=== PATIENT | female | born 1975 | race Caucasian/White ===

== ENCOUNTER 2017-08-21 17:07 | Emergency (ER) | payer BC ==
--- NOTE | 2017-08-21 17:12 | PDOC ---
Rapid Medical Evaluation Time Seen by Provider: 08/21/17 17:08 Medical Evaluation: Allergies Allergy/AdvReac Type Severity Reaction Status Date / Time shellfish derived Allergy Severe anaphylaxis Verified 06/14/14 09:32 heparin Allergy Mild burning Verified 06/14/14 09:32 sensation to skin 08/21/17 17:09 41 year old female with history of gastric bypass, cholecystectomy, tubal ligation 17 years ago (but has 8 year old daughter) presenting with positive home test following several days of abdominal bloating/cramping. 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 Plan: -Labs including serum hcg -UA/culture -Transvaginal u/s -To Main ED for further evaluation
[2017-08-21 17:16] VITALS: BP 149/106; PULSE 86; TEMP 98.6; BMI 22.8
[2017-08-21 17:36] LABS: EOS % 0.6 % (0-4.5); HEMATOCRIT 36.3 % (32.4-45.2); HEMOGLOBIN 12.5 GM/dL (10.7-15.3); LYMPH % 45.7 % (8-40); MCH 36.5 pg (25.7-33.7); MCHC 34.6 g/dl (32.0-36.0); MEAN CELL VOLUME 105.5 fl (80-96); MONO % 9.7 % (3.8-10.2); PLATELET COUNT 149 K/MM3 (134-434); RBC 3.44 M/mm3 (3.60-5.2); RDW 17.5 % (11.6-15.6); WHITE BLOOD COUNT 3.2 K/mm3 (4.0-10.0)
--- NOTE | 2017-08-21 18:20 | PDOC ---
History of Present Illness - General Chief Complaint: ,Possible Stated Complaint: PCP SENT/EVALUATION Time Seen by Provider: 08/21/17 17:08 History Source: Patient Exam Limitations: No Limitations - History of Present Illness Initial Comments: 08/21/17 18:21 Patient came for evaluation of positive test at home. has felt bloated, and menstrual cycles have been abnormal since her surgery. Patient is a gastric bypass. 2012 with greater than 200 pound weight loss. States has had no fever, no nausea vomiting, no breast tenderness however was concerned because menses Had been especially abnormal. Timing/Duration: unsure Associated Symptoms: reports: malaise, other (abd bloating). denies: fever/ chills, headaches, loss of appetite Past History - Travel Traveled outside of the country in the last 30 days: No Close contact w/someone who was outside of country & ill: No - Past Medical History Allergies/Adverse Reactions: Allergies Allergy/AdvReac Type Severity Reaction Status Date / Time shellfish derived Allergy Severe anaphylaxis Verified 08/21/17 17:09 heparin Allergy Mild burning Verified 08/21/17 17:09 sensation to skin Home Medications: Ambulatory Orders Levothyroxine [Synthroid -] 88 mcg PO DAILY 06/14/14 COPD: No Thyroid Disease: Yes (HYPO) - Surgical History Abdominal Surgery: Yes (GASTRIC BYPASS: 01/20/2013, B/L HERNIA) - Suicide/Smoking/Psychosocial Hx Smoking History: Former smoker Have you smoked in the past 12 months: No Number of Cigarettes Smoked Daily: 0 If you are a former smoker, when did you quit?: 2013 Information on smoking cessation initiated: No Hx Alcohol Use: No Drug/Substance Use Hx: No Substance Use Type: Alcohol Review of Systems - Review of Systems Able to Perform ROS?: Yes Is the patient limited Spanish proficient: Yes Constitutional: Yes: Symptoms Reported, See HPI, Loss of Appetite, Malaise. No : Fever HEENTM: Yes: See HPI. No: Symptoms Reported Respiratory: Yes: See HPI. No: Symptoms reported, Cough ABD/GI: Yes: Symptoms Reported, See HPI, Abdominal Distended, Other (bloating ) : Yes: Symptoms Reported, See HPI, Other (lower abd cramping) All Other Systems: Reviewed and Negative *Physical Exam - Vital Signs Last Vital Signs Temp Pulse Resp BP Pulse Ox 98.6 F 86 18 149/106 100 05/02/18 17:09 08/21/17 17:09 08/21/17 17:09 08/21/17 17:09 08/21/17 17:09 - Physical Exam General Appearance: Yes: Nourished, Appropriately Dressed. No: Apparent Distress HEENT: positive: SHIVANI, Normal ENT Inspection, TMs Normal, Pharynx Normal Neck: positive: Supple. negative: Tender Respiratory/Chest: positive: Lungs Clear, Normal Breath Sounds Gastrointestinal/Abdominal: positive: Soft. negative: Tender Musculoskeletal: positive: Normal Inspection. negative: CVA Tenderness Extremity: positive: Normal Capillary Refill Integumentary: positive: Normal Color, Dry, Warm, Pale Neurologic: positive: clinical reviewer II-XII NML intact, Fully Oriented, Alert, Normal Mood/ Affect, Normal Response, Motor Strength 08/24 ED Treatment Course - LABORATORY CBC & Chemistry Diagram: 08/21/17 17:24 - ADDITIONAL ORDERS Additional order review: Laboratory Results 08/21/17 17:24 Beta HCG, Quant < 1.0 08/21/17 17:24 RBC 3.44 L MCV 105.5 H MCHC 34.6 RDW 17.5 H MPV 10.0 Neutrophils % 43.0 Lymphocytes % 45.7 H Monocytes % 9.7 Eosinophils % 0.6 Basophils % 1.0 Medical Decision Making - Medical Decision Making 08/21/17 18:24 Abdominal cramping, test negative and urinalysis negative for UTI. Patient states will follow-up with PMD as needed. *DC/Admit/Observation/Transfer Diagnosis at time of Disposition: Abdominal bloating - Discharge Dispostion Disposition: HOME Condition at time of disposition: Stable Admit: No - Referrals - Patient Instructions Printed Discharge Instructions: Intestinal Gas (Alternative Therapy) Additional Instructions: Rest, drink lots of fluids: Teas, water, soups Gudelia kemar, carbonated beverages for the bubbles May try peppermint teas Avoid heavy , spicy or fatty foods until symptoms have resolved Avoid contact with others until fevers and symptoms resolved Lots of handwashing and good hygiene Continue [id number] medications for symptomatic relief Tylenol or Motrin for fever and pain Followup with private physician in one to 2 days as needed Return to emergency department for worsened symptoms, fevers, dehydration - Post Discharge Activity
[2017-08-21 20:21] LABS: URINE APPEARANCE SLCLOUDY; URINE BILIRUBIN NEGATIVE (<2.0 mg/dL); URINE COLOR DKYELLOW; URINE GLUCOSE (UA) NEGATIVE (NEGATIVE); URINE KETONE NEGATIVE (NEGATIVE); URINE NITRITE NEGATIVE (NEGATIVE); URINE PROTEIN NEGATIVE (NEGATIVE); URINE UROBILINOGEN 4.0 E.U/dl mg/dL (0.2-1.0)
[2017-08-21 20:23] LABS: URINE LEUK ESTERASE 1+ (NEGATIVE)
[2017-08-21 20:24] LABS: EPI CELLS RARE /HPF (FEW); URINE MUCUS RARE
== END 2017-08-21 18:33 | disposition home or self-care (01) ==
LOC: JERFT 17:07
DX: R14.0 Abdominal distension (gaseous) (principal); Z98.84 Bariatric surgery status; E03.9 Hypothyroidism, unspecified; Z87.891 Personal history of nicotine dependence
CPT/HCPCS: 36415; 81003; 81015; 84702; 85025; 86850; 86900; 86901; 87086; 87186; 99281-25

== ENCOUNTER 2018-08-03 06:30 | Emergency (ER) | payer BC ==
[2018-08-03 06:46] VITALS: BP 157/98; PULSE 80; TEMP 98.1; BMI 23.6
[2018-08-03 06:56] LABS: HEMATOCRIT 31.9 % (32.4-45.2); LYMPH % 48.6 % (8-40); MCH 36.1 pg (25.7-33.7); MCHC 34.4 g/dl (32.0-36.0); MEAN PLT VOLUME 9.7 fl (7.5-11.1); MONO % 9.1 % (3.8-10.2); NEUT % 38.3 % (42.8-82.8); PLATELET COUNT 108 K/MM3 (134-434); RBC 3.04 M/mm3 (3.60-5.2); RDW 15.4 % (11.6-15.6); WHITE BLOOD COUNT 4.5 K/mm3 (4.0-10.0)
--- NOTE | 2018-08-03 07:12 | PDOC ---
History of Present Illness - General Chief Complaint: Pain, Acute Stated Complaint: ABDOMINAL PAIN Time Seen by Provider: 08/03/18 07:12 History Source: Patient Exam Limitations: No Limitations - History of Present Illness Initial Comments: 08/03/18 07:14 42 year old female with PMH hypothyroidism and PSH of gastric bypass (2012), cholecystectomy, tubal ligation presented to ED for epigastric pain since Saturday. She stated night she went to a baby shower, drank wine and ate fried chicken, then Saturday morning woke up with epigastric burning. She stated her pain is constant, with no association to food, non-radiating, no alleviating or aggravating factors. She admitted to nausea, and vomiting, but stated that she vomits 4X a week, and she has not had any increased vomiting from her baseline. She denied fever, diarrhea. She stated she feels like she may be taking too much of her thyroid medication, because she has been feeling jittery and has been losing weight recently. Allergies: Heparin, shellfish Surgical history - gastric bypass, cholecystectomy, tubal ligation Past History - Past Medical History Allergies/Adverse Reactions: Allergies Allergy/AdvReac Type Severity Reaction Status Date / Time shellfish derived Allergy Severe anaphylaxis Verified 08/03/18 06:37 heparin Allergy Mild burning Verified 08/03/18 06:37 sensation to skin Home Medications: Ambulatory Orders Levothyroxine [Synthroid -] 88 mcg PO DAILY 06/14/14 Famotidine [Pepcid] 20 mg PO BID #10 tablet 08/03/18 COPD: No Thyroid Disease: Yes (HYPO) - Surgical History Abdominal Surgery: Yes (GASTRIC BYPASS: 01/20/2013, B/L HERNIA) - Reproductive History Is Patient Now?: No Therapeutic (s) & number: No - Immunization History Immunization Up to Date: Yes - Suicide/Smoking/Psychosocial Hx Smoking History: Never smoked Have you smoked in the past 12 months: No Number of Cigarettes Smoked Daily: 0 If you are a former smoker, when did you quit?: 2013 Information on smoking cessation initiated: No Hx Alcohol Use: No Drug/Substance Use Hx: No Substance Use Type: Alcohol Review of Systems - Review of Systems Able to Perform ROS?: Yes Comments:: 08/03/18 07:41 General: admitted to weight loss. denied fever, chills, generalized weakness. HEENT: denied sore throat, rhinorrhea, ear pain. Heart: denied chest pain, palpitations, syncope, diaphoresis. Respiratory: denied shortness of breath, cough, sputum production, hemoptysis. Abdomen: admitted to abdominal pain, nausea, vomiting. denied diarrhea, constipation, blood in stool. : denied dysuria, increased urinary frequency, hematuria, urinary incontinence , flank pain. Back: denied back pain. Musculoskeletal: denied joint pain, muscle pain, joint swelling. Neurological: denied headache, dizziness, numbness, tingling, weakness. Skin: denied rash, laceration, abrasion. *Physical Exam - Vital Signs Last Vital Signs Temp Pulse Resp BP Pulse Ox 98.1 F 80 20 157/98 99 08/03/18 06:44 08/03/18 06:44 08/03/18 06:44 08/03/18 06:44 08/03/18 06:44 - Physical Exam Comments: 08/03/18 07:41 Constitutional: Well-nourished, Well-developed, appearing stated age. HEENT: head is normocephalic, atraumatic. EOMI. PERRLA. Neck: supple. Full ROM. Heart: regular rhythm. no murmurs, rubs or gallops. Lungs: clear to auscultation bilaterally. no crackles, rhonchi or wheezing. no stridor. Abdomen: soft, flat tenderness to palpation of epigastrium and LUQ. normal bowel sounds. no rebound, guarding, masses. Extremities: peripheral pulses intact. no lower extremity edema. Neurological: CN 2-12 grossly intact. moves all four extremities. Psych: awake, alert, oriented x3. follows commands. answers questions appropriately. ED Treatment Course - LABORATORY CBC & Chemistry Diagram: 08/03/18 06:41 08/03/18 06:41 - ADDITIONAL ORDERS Additional order review: 08/03/18 06:41 RBC 3.04 L MCV 105.0 H MCHC 34.4 RDW 15.4 D MPV 9.7 Neutrophils % 38.3 L Lymphocytes % 48.6 H Monocytes % 9.1 Eosinophils % 3.0 D Basophils % 1.0 Medical Decision Making - Medical Decision Making 08/03/18 07:42 42 year old female with above PMH presented to ED for epigastric burning, also complaining of weight loss/jitters. Initial Vital Signs Temp Pulse Resp BP Pulse Ox 98.1 F 80 20 157/98 99 08/03/18 06:44 08/03/18 06:44 08/03/18 06:44 08/03/18 06:44 08/03/18 06:44 Afebrile. No tachycardia. No tachypnea. Mild hypertension. No hypoxia on room air. Labs ordered: CBC, CMP, serum , TSH, Lipase Medications ordered: zofran 4 mg IV once, pepcid 20 mg IV once, maalox Imaging ordered: CT abdomen/pelvis with PO and IV contrast CBC WBC 4.5 K/mm3 (4.0-10.0) 08/03/18 06:41 RBC 3.04 M/mm3 (3.60-5.2) L 08/03/18 06:41 Hgb 11.0 GM/dL (10.7-15.3) 08/03/18 06:41 Hct 31.9 % (32.4-45.2) L 08/03/18 06:41 MCV 105.0 fl (80-96) H 08/03/18 06:41 MCH 36.1 pg (25.7-33.7) H 08/03/18 06:41 MCHC 34.4 g/dl (32.0-36.0) 08/03/18 06:41 RDW 15.4 % (11.6-15.6) D 08/03/18 06:41 Plt Count 108 K/MM3 (134-434) L D 08/03/18 06:41 MPV 9.7 fl (7.5-11.1) 08/03/18 06:41 Absolute Neuts (auto) 1.7 K/mm3 (1.5-8.0) 08/03/18 06:41 Neutrophils % 38.3 % (42.8-82.8) L 08/03/18 06:41 Lymphocytes % 48.6 % (8-40) H 08/03/18 06:41 Monocytes % 9.1 % (3.8-10.2) 08/03/18 06:41 Eosinophils % 3.0 % (0-4.5) D 08/03/18 06:41 Basophils % 1.0 % (0-2.0) 08/03/18 06:41 Nucleated RBC % 0 % (0-0) 08/03/18 06:41 No leukocytosis. Borderline macrocytic anemia. -Hx of gastric bypass surgery Thrombocytopenia. 08/03/18 08:34 CMP Sodium 137 mmol/L (136-145) 08/03/18 06:41 Potassium 3.9 mmol/L (3.5-5.1) 08/03/18 06:41 Chloride 106 mmol/L (98-107) 08/03/18 06:41 Carbon Dioxide 24 mmol/L (21-32) 08/03/18 06:41 Anion Gap 8 MMOL/L (8-16) 08/03/18 06:41 BUN 11 mg/dL (7-18) 08/03/18 06:41 Creatinine 1.0 mg/dL (0.55-1.3) 08/03/18 06:41 Creat Clearance w eGFR 60.80 (>60) 08/03/18 06:41 Random Glucose 92 mg/dL (74-106) 08/03/18 06:41 Calcium 7.4 mg/dL (8.5-10.1) L 08/03/18 06:41 Total Bilirubin 1.4 mg/dL (0.2-1) H 08/03/18 06:41 AST 189 U/L (15-37) H 08/03/18 06:41 ALT 91 U/L (13-61) H 08/03/18 06:41 Alkaline Phosphatase 176 U/L (45-117) H 08/03/18 06:41 Total Protein 6.4 g/dl (6.4-8.2) 08/03/18 06:41 Albumin 2.7 g/dl (3.4-5.0) L 08/03/18 06:41 Lipase 127 U/L (73-393) 08/03/18 06:41 TSH 1.09 uIU/ml (0.358-3.74) 08/03/18 06:41 Serum , Qual Negative 08/03/18 07:28 No electrolyte abnormalities. No ELIAS. Transaminitis. Elevated Bilirubin. Normal lipase. Normal TSH. Negative serum testing. 08/03/18 10:42 Urine Test Results Urine Color [place] 08/03/18 08:41 Urine Appearance Clear 08/03/18 08:41 Urine pH 7.0 (5.0-8.0) 08/03/18 08:41 Ur Specific [place] 1.007 (1.010-1.035) L 08/03/18 08:41 Urine Protein Negative (NEGATIVE) 08/03/18 08:41 Urine Glucose (UA) Negative (NEGATIVE) 08/03/18 08:41 Urine Ketones Negative (NEGATIVE) 08/03/18 08:41 Urine Blood Negative (NEGATIVE) 08/03/18 08:41 Urine Nitrite Negative (NEGATIVE) 08/03/18 08:41 Urine Bilirubin Negative (NEGATIVE) 08/03/18 08:41 Ur Leukocyte Esterase Negative (NEGATIVE) 08/03/18 08:41 No evidence of UTI. 08/03/18 11:22 CT abdomen/pelvis report: status post bariatric surgery. prominent diffuse fatty infiltration of the liver with associated hepatomegaly. no obvious mass lesion is seen. s/p cholecystectomy. no definite biliary tract dilation. no aortic aneurysm. appendiz not visualized, however there are no indirect CT signs of acute appendicitis. 08/03/18 11:35 Pt reassessed, standing up, walking around, appears to not be in pain any longer , reported improvement of symptoms, abdomen soft, nontender. Results explained to patient. Pt informed to follow up with PCP, given [facility] Pamphlet. Pt informed to follow up with GI, given multiple referrals. Pt requested Endocrinology referral, given multiple referrals. Discharge prescriptions: Pepcid 20 mg BID x10 pills Pt discharged. *DC/Admit/Observation/Transfer Diagnosis at time of Disposition: Epigastric burning sensation - Discharge Dispostion Condition at time of disposition: Improved Decision to Admit order: No - Prescriptions Prescriptions: Famotidine [Pepcid] 20 mg PO BID #10 tablet - Referrals - Patient Instructions Printed Discharge Instructions: DI for Gastroesophageal Reflux Disease (GERD), GERD Diet, DI for Nonalcoholic Fatty Liver Disease Additional Instructions: You were seen today for abdominal pain. Your liver enzymes were elevated and your CT showed you have a Fatty Liver. You must make changes to your diet to reverse this. Follow up the primary care doctor and one of the gastroenterologists I have provided you with referrals with within 3 days. Bring all the paperwork given to you today to your appointment, including copies of your CT report and lab work. I have sent a prescription to your pharmacy for Pepcid, take as advised on label. Return to the Emergency Department for chest pain, shortness of breath, vomiting , vomiting blood, blood in stool, fever, increasing size of abdomen or any other new, worsening or concerning symptoms. - Post Discharge Activity Forms/Work/School Notes: Back to Work
[2018-08-03] MEDS ORDERED: ONDANSETRON 4 MG/2 ML VIAL IVPUSH ONE (07:21)
[2018-08-03] MEDS ORDERED: FAMOTIDINE 20 MG/50 ML IVPB 20 MG/50 ML MG IVPB ONE ×2 (07:21→07:30)
[2018-08-03] MEDS ORDERED: MAG HYDROX/AL HYDROX/SIMETH 30 ML UNIT-DOSE CUP PO ONE (07:21)
[2018-08-03 07:22] LABS: ALBUMIN 2.7 g/dl (3.4-5.0); ALK PHOS 176 U/L (45-117); ANION GAP 8 MMOL/L (8-16); BILIRUBIN,TOTAL 1.4 mg/dL (0.2-1); BLOOD UREA NITROGEN 11 mg/dL (7-18); CALCIUM 7.4 mg/dL (8.5-10.1); CHLORIDE 106 mmol/L (98-107); CO2 24 mmol/L (21-32); GLUCOSE,RANDOM 92 mg/dL (74-106); LIPASE 127 U/L (73-393); POTASSIUM 3.9 mmol/L (3.5-5.1); SGOT/AST 189 U/L (15-37); SGPT/ALT 91 U/L (13-61); SODIUM 137 mmol/L (136-145); TOT PROT 6.4 g/dl (6.4-8.2)
--- NOTE | 2018-08-03 07:23 | PDOC ---
Attending Attestation - Resident Resident Name: Anita Javier - ED Attending Attestation I have performed the following: I have examined & evaluated the patient, The case was reviewed & discussed with the resident, I agree w/resident's findings & plan, Exceptions are as noted - HPI HPI: 08/03/18 07:21 42yo F hx hypothyroidism, gastric bypass, cholecystectomy, hiatal hernia repair all in 2012 presents to ED with burning epigastric pain for 2 days a/w NBNB emesis Pt reports 2 episodes of vomiting, but states this vomiting is not abnormal for her since her surgeries Reports sxs began after eating chicken and drinking wine at a baby shower. Has not tried any treatments Reports sxs are similar to gastric reflux she had prior to hiatal hernia repair but worse Last BM 2 days ago was normal, non bloody. Pt reports she is often constipated which resolves with prune juice Passed flatus here in the ED Denies fevers, chills, cp, sob, headache, focal weakness/numbness, urinary sxs. - Physicial Exam PE: 08/03/18 08:08 GENERAL: Awake, alert, and fully oriented, in no acute distress EYES: PERRLA, EOMI, sclera anicteric, conjunctiva clear ENT:Oropharynx clear without exudates. Moist mucosa LUNGS: Breath sounds equal, clear to auscultation bilaterally. No wheezes, and no crackles HEART: Regular rate and rhythm, normal S1 and S2, no murmurs, rubs or gallops ABDOMEN: Soft,+epigastric abd ttp, no distention, normoactive bowel sounds. No guarding, no rebound. No masses EXTREMITIES: Normal range of motion, no edema. No cords, erythema, or tenderness NEUROLOGICAL: Normal speech, cranial nerves intact, equal strength and sensation b/l SKIN: Warm, Dry, normal turgor, no rashes or lesions noted. - Medical Decision Making 08/03/18 08:10 42yo F hx gastric bypass, hiatal hernia, cholecystectomy presents to the ED with epigastric abdominal pain. Vitals unremarkable Exam with epigastric ttp Labs thus far with mildly elevated AST/ALT, alk phos, bili UPT/UA pending DDx includes pancreatitis vs gastritis vs GERD vs gastroenteritis vs retained stone In light of reported bowel altering surgery (pt states part of her intestine was removed), will obtain CTAP with PO/IV contrast Plan also for symptomatic control, reassess 08/03/18 11:33 CTAP with no acute pathology Pt feeling much better at this time, ambulating in ED, tolerating PO Requests DC home Likely gastritis vs GERD Pt to f/u with PMD this wk, return precautions given I discussed the physical exam findings, ancillary test results and final diagnoses with the patient. I answered all of the patient's questions. The patient was satisfied with the care received and felt comfortable with the discharge plan and treatment plan. The patient will call their primary care physician within 24 hours to arrange follow-up and will return to the Emergency Department with any new, persistent or worsening symptoms.
[2018-08-03] MEDS ORDERED: MAG HYDROX/AL HYDROX/SIMETH 30 ML UNIT-DOSE CUP ONE (07:28)
[2018-08-03] MEDS ORDERED: ONDANSETRON 4 MG/2 ML VIAL ONE (07:28)
[2018-08-03] MEDS ORDERED: SODIUM CHLORIDE 1,000 ML IV STA (07:46)
[2018-08-03 10:12] LABS: ANISOCYTOSIS 1+; PLATELET ESTIMATE DECREASED
[2018-08-03 10:17] LABS: URINE APPEARANCE CLEAR; URINE BILIRUBIN NEGATIVE (NEGATIVE); URINE COLOR ORANGE; URINE GLUCOSE (UA) NEGATIVE (NEGATIVE); URINE KETONE NEGATIVE (NEGATIVE); URINE LEUK ESTERASE NEGATIVE (NEGATIVE); URINE NITRITE NEGATIVE (NEGATIVE); URINE PROTEIN NEGATIVE (NEGATIVE); URINE UROBILINOGEN 0.2 mg/dL (0.2-1.0)
== END 2018-08-03 11:55 | disposition home or self-care (01) ==
LOC: JER 06:30
PROC: 3E0337Z Introduction of Electrolytic and Water Balance Substance into Peripheral Vein, Percutaneous Approach (ICD-10-PCS; principal; 2018-08-03)
PROC: 3E033GC Introduction of Other Therapeutic Substance into Peripheral Vein, Percutaneous Approach (ICD-10-PCS; 2018-08-03)
PROC: 3E033GC Introduction of Other Therapeutic Substance into Peripheral Vein, Percutaneous Approach (ICD-10-PCS; 2018-08-03)
DX: R10.13 Epigastric pain (principal); K76.0 Fatty (change of) liver, not elsewhere classified; E03.9 Hypothyroidism, unspecified; Z98.84 Bariatric surgery status
CPT/HCPCS: 36415; 74177-TC; 80053; 81003; 83690; 84443; 84703; 85025; 87086; 99283-25; J7030; Q9967

== ENCOUNTER 2018-09-30 16:13 | Emergency (ER) | payer BC | END 2018-09-30 18:30 | disposition home or self-care (01) | LOC: JER 16:13 ==

== ENCOUNTER 2019-06-14 04:44 | Inpatient (IN) | payer BC ==
--- NOTE | 2019-06-14 05:04 | PDOC ---
History of Present Illness - General Chief Complaint: Pain, Acute Stated Complaint: UPPER ABDOMINAL PAIN - History of Present Illness Initial Comments: The pt is a 43F w/ a history of hypothyroidism, eczema, s/p RYGB and internal hernia repair, s/p ramon, s/p BTL who presents for evaluation of 3 days of abdominal pain. The began as suprapubic pain but is now epigastric/RUQ. It is achy/bloating, intermittent, non-radiating, and not exacerbated or alleviated by anything she can identify. She endorses dysuria. She denies fevers/chills, nausea/vomiting, diarrhea, blood in her urine or stool , rash. She has not tried taking anything for her symptoms. Pt reports seeing her bariatric surgeon last year at [facility], had an EGD and colonoscopy which were reportedly normal. She reports being told that her liver enzymes were elevated and she needed to f/ u with GI/hepatology but has yet to do so. Pt reports being compliant with her probiotics, vitamins, and synthroid Pt states she quit drinking EtOH 1 month ago. Prior to that she reports daily EtOH use for approximately 3 years. States she would drink 1/2 bottle of wine, cockails, and several shots daily. Denies history of withdrawal symptoms or seizures PFH: Cousin and Uncle w/ non-alcoholic liver disease PMD: N/A Bariatric Surgeon: Dr. Mayers ([facility]) 06/14/19 05:32 Past History - Past Medical History Allergies/Adverse Reactions: Allergies Allergy/AdvReac Type Severity Reaction Status Date / Time shellfish derived Allergy Severe anaphylaxis Verified 06/14/19 05:01 heparin Allergy Mild burning Verified 06/14/19 05:01 sensation to skin Home Medications: Ambulatory Orders Levothyroxine [Synthroid -] 88 mcg PO DAILY #30 tablet 09/30/18 COPD: No Thyroid Disease: Yes (HYPO) - Surgical History Abdominal Surgery: Yes (GASTRIC BYPASS: 01/20/2013, B/L HERNIA) - Reproductive History Therapeutic (s) & number: No - Immunization History Immunization Up to Date: Yes - Psycho Social/Smoking Cessation Hx Smoking History: Never smoked Have you smoked in the past 12 months: No Number of Cigarettes Smoked Daily: 0 If you are a former smoker, when did you quit?: 2013 Information on smoking cessation initiated: No Hx Alcohol Use: No Drug/Substance Use Hx: No Substance Use Type: Alcohol Review of Systems - Review of Systems Able to Perform ROS?: Yes Comments:: GENERAL/CONSTITUTIONAL: No fever or chills. No weakness HEAD, EYES, EARS, NOSE AND THROAT: No change in vision. No change in hearing. No sore throat CARDIOVASCULAR: No chest pain or shortness of breath RESPIRATORY: Denies cough, hemoptysis GASTROINTESTINAL: No nausea, vomiting, diarrhea or constipation GENITOURINARY: +dysuria; denies hematuria MUSCULOSKELETAL: No joint or muscle swelling or pain. No neck or back pain SKIN: No rash NEUROLOGIC: No headache, vertigo, loss of consciousness, or change in strength/ sensation ENDOCRINE: No increased thirst. No abnormal weight change HEMATOLOGIC/LYMPHATIC: No anemia, easy bleeding, or history of blood clots ALLERGIC/IMMUNOLOGIC: No hives or skin allergy 06/14/19 05:04 Is the patient limited Ukrainian proficient: No *Physical Exam - Vital Signs Last Vital Signs Temp Pulse Resp BP Pulse Ox 97.8 F 93 H 20 118/73 100 06/14/19 05:01 06/14/19 05:01 06/14/19 05:01 06/14/19 05:01 06/14/19 05:01 - Physical Exam GENERAL: Awake, alert, and oriented to person/place/time, in no acute distress HEAD: No signs of trauma, normocephalic, atraumatic EYES: PERRLA, EOMI, scleral icterus ENT: Hearing grossly normal, nares patent, oropharynx clear without exudates. No uvular deviation. Moist mucosa LUNGS: No distress, speaks in full sentences, clear to auscultation bilaterally HEART: Regular rate and rhythm, normal S1 and S2, no murmurs appreciated, peripheral pulses normal and equal bilaterally ABDOMEN: Soft, RUQ TTP w/o rebound or guarding, hepatomegaly, normoactive bowel sounds EXTREMITIES: Normal inspection, Normal range of motion, no edema. No clubbing or cyanosis NEUROLOGICAL: Cranial nerves II through XII grossly intact. Normal speech, normal gait, no focal sensorimotor deficits SKIN: Jaundice, otherwise warm/dry 06/14/19 05:04 ED Treatment Course - LABORATORY CBC & Chemistry Diagram: 06/14/19 05:23 06/14/19 05:23 Medical Decision Making - Medical Decision Making The pt is a 43F w/ a history of hypothyroidism, eczema, s/p RYGB and internal hernia repair, s/p ramon, s/p BTL, history of EtOH abuse who presents for evaluation of 3 days of RUQ abdominal pain and jaundice. Pt also reports dysuria. Consider liver disease/failure, cirrhosis, hepatitis, retained biliary stone, pancreatitis, less likely gastritis; also UTI/pyelo given urinary symptoms ED Course CMP, CBC, Trop I, hepatitis panel, Dbili, UA, UCx ECG CT A&P w/ PO and IV contrast -Began drinking contrast at 0540 Morphine 4mg IV once for pain -Zofran 4mg IV once for subsequent nausea 06/14/19 05:44 No leukocytosis Anemia noted, pt non-tachycardic or hypotensive Thrombocytopenia noted Coags and T/S obtained and sent 06/14/19 06:04 Increasing transaminitis noted Pending CT A&P Pt signed out to Dr. Javier Discharge - Discharge Information Problems reviewed: Yes Clinical Impression/Diagnosis: Transaminitis, Hypokalemia, RUQ pain, Thrombocytopenia, Elevated bilirubin - Follow up/Referral - Patient Discharge Instructions - Post Discharge Activity
--- NOTE | 2019-06-14 05:05 | PDOC ---
Attending Attestation - Resident Resident Name: Zak Lozano - ED Attending Attestation I have performed the following: I have examined & evaluated the patient, The case was reviewed & discussed with the resident, I agree w/resident's findings & plan - HPI HPI: 06/14/19 06:36 The pt is a 43F w/ a history of hypothyroidism, eczema, s/p RYGB and internal hernia repair, s/p ramon, s/p BTL who presents for evaluation of 3 days of abdominal pain. The began as suprapubic pain but is now epigastric/RUQ. It is achy/bloating, intermittent, non-radiating, and not exacerbated or alleviated by anything she can identify. She endorses dysuria. - Physicial Exam PE: 06/14/19 06:36 Agree with resident exam - Medical Decision Making 06/14/19 06:36 Pt is drinking contrast. She will have CT scan in the AM Pt signned out to the day team Heart Score/ECG Review - ECG Intrepretation Rhythm: Regular Rhythm - [place]: Normal - P and FL Prominent R with upright T in V1 (true posterior OK): No Delta Wave(s) Present: No WPW: No - QRS Poor R Wave Progression: No Q Wave Present: No - ST and T Flattened T Waves: No Prolonged Q-T Interval: No - ECG Impressions Normal ECG: Yes Non-specific ST Elevation: No Ischemic Changes: No Bradycardia: No Torsades yolanda Pointes: No
[2019-06-14 05:08] VITALS: BMI 24.1
[2019-06-14] MEDS ORDERED: morphine CARPU-JECT 4 MG/1 ML DISP.SYRIN IVPUSH ONE (05:32)
[2019-06-14 05:37] LABS: BASO % 0.5 % (0-2.0); EOS % 3.2 % (0-4.5); HEMATOCRIT 27.9 % (32.4-45.2); HEMOGLOBIN 9.2 GM/dL (10.7-15.3); LYMPH % 35.1 % (8-40); MCH 30.4 pg (25.7-33.7); MEAN CELL VOLUME 92.1 fl (80-96); MEAN PLT VOLUME 9.8 fl (7.5-11.1); MONO % 7.4 % (3.8-10.2); NEUT % 53.8 % (42.8-82.8); PLATELET COUNT 77 K/MM3 (134-434); RBC 3.03 M/mm3 (3.60-5.2); RDW 20.2 % (11.6-15.6); WHITE BLOOD COUNT 4.3 K/mm3 (4.0-10.0)
[2019-06-14] MEDS ORDERED: morphine SULFATE 4 MG/ML VIAL ONE (05:37)
[2019-06-14] MEDS ORDERED: ONDANSETRON 4 MG/2 ML VIAL IVPUSH ONE (05:43)
[2019-06-14] MEDS ORDERED: ONDANSETRON 4 MG/2 ML VIAL ONE ×2 (05:45→07:40)
[2019-06-14 05:59] LABS: MAGNESIUM 2.1 mg/dL (1.8-2.4)
[2019-06-14] MEDS ORDERED: LACTATED RINGERS SOLUTION 1000 ML INFUS.BAG IV ONE (06:05)
[2019-06-14 06:08] LABS: ALBUMIN 3.1 g/dl (3.4-5.0); BILIRUBIN,DIRECT 1.5 mg/dL (0.0-0.2); BILIRUBIN,TOTAL 2.8 mg/dL (0.2-1); CALCIUM 8.3 mg/dL (8.5-10.1); CREATININE 0.7 mg/dL (0.55-1.3); POTASSIUM 3.3 mmol/L (3.5-5.1); TOT PROT 7.7 g/dl (6.4-8.2)
[2019-06-14 06:10] LABS: BLOOD UREA NITROGEN 2.9 mg/dL (7-18)
[2019-06-14] MEDS ORDERED: POTASSIUM CHLORIDE ORAL LIQUID 20 MEQ/15 ML PO ONE (06:41)
[2019-06-14 06:43] LABS: INR 1.29 (0.83-1.09); PROTHROMBIN TIME (PATIENT) 15.3 SEC (9.7-13.0)
[2019-06-14 06:46] LABS: ACTIVATED PTT 39.6 SECONDS (25.2-36.5)
[2019-06-14] MEDS ORDERED: POTASSIUM CHLORIDE ORAL LIQUID 20 MEQ/15 ML ONE (06:58)
--- NOTE | 2019-06-14 08:11 | PDOC ---
ED Treatment Course - LABORATORY CBC & Chemistry Diagram: 06/14/19 05:23 06/14/19 05:23 - Medications Given in the ED: ED Medications Discontinued Medications Generic Name Dose Route Start Last Admin Trade Name Giuliano PRN Reason Stop Dose Admin Lactated Ringer's 1,000 ml 06/14/19 06:05 06/14/19 06:48 Lactated Ringers Solution IV 06/14/19 06:06 1,000 ml ONCE ONE Administration Morphine Sulfate 4 mg 06/14/19 05:32 06/14/19 05:43 Morphine Injection - IVPUSH 06/14/19 05:33 4 mg ONCE ONE Administration Ondansetron HCl 4 mg 06/14/19 05:43 06/14/19 06:47 Zofran Injection IVPUSH 06/14/19 05:44 Not Given ONCE ONE Potassium Chloride 40 meq 06/14/19 06:41 06/14/19 07:03 Potassium Chloride Oral Liquid PO 06/14/19 06:42 40 meq ONCE ONE Administration Medical Decision Making - Medical Decision Making 43 year old male with PMH ETOH abuse (last drank x1 month ago after daily use for 3 years; 1/2 bottle of wine + shots a day), hypothryoidism, eczema, RYGB and internal internal hernia repair, cholecystectomy, elevated liver enzymes, bilateral tubal ligation presented to ED for RUQ pain x3 days associated with dysuria. PMD: N/A Bariatric Surgeon: Dr. Mayers ([facility]) Initial Vital Signs Temp Pulse Resp BP Pulse Ox 97.8 F 93 H 20 118/73 100 06/14/19 05:01 06/14/19 05:01 06/14/19 05:01 06/14/19 05:01 06/14/19 05:01 Laboratory Last Values WBC 4.3 K/mm3 (4.0-10.0) 06/14/19 05:23 RBC 3.03 M/mm3 (3.60-5.2) L 06/14/19 05:23 Hgb 9.2 GM/dL (10.7-15.3) L 06/14/19 05:23 Hct 27.9 % (32.4-45.2) L 06/14/19 05:23 MCV 92.1 fl (80-96) 06/14/19 05:23 MCH 30.4 pg (25.7-33.7) D 06/14/19 05:23 MCHC 33.0 g/dl (32.0-36.0) 06/14/19 05:23 RDW 20.2 % (11.6-15.6) H 06/14/19 05:23 Plt Count 77 K/MM3 (134-434) L D 06/14/19 05:23 MPV 9.8 fl (7.5-11.1) D 06/14/19 05:23 Absolute Neuts (auto) 2.3 K/mm3 (1.5-8.0) 06/14/19 05:23 Neutrophils % 53.8 % (42.8-82.8) D 06/14/19 05:23 Lymphocytes % 35.1 % (8-40) D 06/14/19 05:23 Monocytes % 7.4 % (3.8-10.2) 06/14/19 05:23 Eosinophils % 3.2 % (0-4.5) D 06/14/19 05:23 Basophils % 0.5 % (0-2.0) 06/14/19 05:23 Nucleated RBC % 0 % (0-0) 06/14/19 05:23 PT with INR 15.30 SEC (9.7-13.0) H 06/14/19 06:10 INR 1.29 (0.83-1.09) H 06/14/19 06:10 PTT (Actin FS) 39.6 SECONDS (25.2-36.5) H 06/14/19 06:10 Sodium 138 mmol/L (136-145) 06/14/19 05:23 Potassium 3.3 mmol/L (3.5-5.1) L 06/14/19 05:23 Chloride 106 mmol/L (98-107) 06/14/19 05:23 Carbon Dioxide 26 mmol/L (21-32) 06/14/19 05:23 Anion Gap 6 MMOL/L (8-16) L 06/14/19 05:23 BUN 2.9 mg/dL (7-18) L* 06/14/19 05:23 Creatinine 0.7 mg/dL (0.55-1.3) 06/14/19 05:23 Est GFR (CKD-EPI)AfAm 122.99 06/14/19 05:23 Est GFR (CKD-EPI)NonAf 106.12 06/14/19 05:23 Random Glucose 100 mg/dL (74-106) 06/14/19 05:23 Calcium 8.3 mg/dL (8.5-10.1) L 06/14/19 05:23 Magnesium 2.1 mg/dL (1.8-2.4) 06/14/19 05:23 Total Bilirubin 2.8 mg/dL (0.2-1) H 06/14/19 05:23 Direct Bilirubin 1.5 mg/dL (0.0-0.2) H 06/14/19 05:23 AST 289 U/L (15-37) H 06/14/19 05:23 ALT 138 U/L (13-61) H 06/14/19 05:23 Alkaline Phosphatase 183 U/L (45-117) H 06/14/19 05:23 Total Protein 7.7 g/dl (6.4-8.2) 06/14/19 05:23 Albumin 3.1 g/dl (3.4-5.0) L 06/14/19 05:23 Lipase 194 U/L (73-393) 06/14/19 05:23 Serum , Qual Negative 06/14/19 05:23 No leukocytosis. Thrombocytopenia. Hypokalemia. -Repleted by prior provider with KCL 40 mEq PO once Transaminitis Lipase wnl No supratherapeutic INR Elevated direct and total bilirubin Morphine given for pain, made patient nauseous and zofran was ordered. Pepcid ordered. ED Medications Discontinued Medications Generic Name Dose Route Start Last Admin Trade Name Freq PRN Reason Stop Dose Admin Lactated Ringer's 1,000 ml 06/14/19 06:05 06/14/19 06:48 Lactated Ringers Solution IV 06/14/19 06:06 1,000 ml ONCE ONE Administration Morphine Sulfate 4 mg 06/14/19 05:32 06/14/19 05:43 Morphine Injection - IVPUSH 06/14/19 05:33 4 mg ONCE ONE Administration Ondansetron HCl 4 mg 06/14/19 05:43 06/14/19 06:47 Zofran Injection IVPUSH 06/14/19 05:44 Not Given ONCE ONE Potassium Chloride 40 meq 06/14/19 06:41 06/14/19 07:03 Potassium Chloride Oral Liquid PO 06/14/19 06:42 40 meq ONCE ONE Administration 06/14/19 09:03 Urine Test Results Urine Color Yellow 06/14/19 05:38 Urine Appearance Clear 06/14/19 05:38 Urine pH 6.5 (5.0-8.0) 06/14/19 05:38 Ur Specific [place] 1.008 (1.010-1.035) L 06/14/19 05:38 Urine Protein Negative (NEGATIVE) 06/14/19 05:38 Urine Glucose (UA) Negative (NEGATIVE) 06/14/19 05:38 Urine Ketones Negative (NEGATIVE) 06/14/19 05:38 Urine Blood Negative (NEGATIVE) 06/14/19 05:38 Urine Nitrite Negative (NEGATIVE) 06/14/19 05:38 Urine Bilirubin Negative (NEGATIVE) 06/14/19 05:38 Ur Leukocyte Esterase 2+ (NEGATIVE) H 06/14/19 05:38 WBC 4 06/14/19 09:28 CT report: Name: [facility] DEPARTMENT OF RADIOLOGY Phys: Zak Lozano RESIDENT : 1975 Age: 43 Sex: F [facility] Acct: [id number] Loc: [address] Exam Date: 06/14/19 Status: [place] [address] Unit Number: [id number] EXAM#: TYPE/EXAM: RESULT: [id number] CT/ABDOMEN PELVIS CT WITH CONTR HISTORY PROVIDED: Right upper quadrant pain. Sequential axial images were obtained from the domes of the diaphragms through the symphysis pubis following the administration of both oral and intravenous contrast material. The lung bases are clear. The liver is enlarged measuring 20 cm in craniocaudad dimension. It is hypodense in texture consistent with diffuse fatty infiltration. No mass lesions are identified within the liver. The spleen, pancreas, adrenal glands and kidneys demonstrate no significant abnormalities. The gallbladder has been removed. There is no evidence of intra-abdominal or retroperitoneal lymphadenopathy or fluid collections. There is no evidence of pneumoperitoneum, bowel obstruction or intra-abdominal abscess. There is no CT evidence of acute appendicitis or diverticulitis. Examination of the pelvis demonstrates no evidence of pelvic masses, fluid collections or lymphadenopathy. There is a 2 cm involuting cyst of the left ovary with a trace amount of free fluid in the left adnexal region. There is no evidence of acute bony pathology. IMPRESSION: 1. Hepatomegaly with diffuse fatty infiltration of the liver. 2. S/P cholecystectomy with no evidence of acute pathology within the abdomen or pelvis. Please see above discussion. Reported By: Jeanmarie David MD 06/14/19 [id number] Pt reported improvement of symptoms. Pt advised to F/U with PCP, GI. Medications ordered: Keflex 500 mg PO once GI, Dr. Saunders, paged for recs. 06/14/19 10:21 Dr. Saunders advised admission for acute liver failure likely secondary to ETOH. He requested ETOH and ethyl glucuronide lab work. Pt has no PCP. Discharge - Discharge Information Problems reviewed: Yes Clinical Impression/Diagnosis: Transaminitis, Hypokalemia, RUQ pain, Thrombocytopenia, Elevated bilirubin, UTI (urinary tract infection), Liver failure Condition: Guarded - Admission Yes - Follow up/Referral - Patient Discharge Instructions Patient Printed Discharge Instructions: DI for Urinary Tract Infection (UTI) - Post Discharge Activity
[2019-06-14 09:01] LABS: EPI CELLS 0.8 /HPF (0-5/HPF); HYALINE CASTS 1 /lpf (0-8); PH,URINE 6.5 (5.0-8.0); URINE APPEARANCE CLEAR; URINE BACTERIA 6.2 /hpf (NEGATIVE); URINE BILIRUBIN NEGATIVE (NEGATIVE); URINE COLOR YELLOW; URINE GLUCOSE (UA) NEGATIVE (NEGATIVE); URINE KETONE NEGATIVE (NEGATIVE); URINE LEUK ESTERASE 2+ (NEGATIVE); URINE NITRITE NEGATIVE (NEGATIVE); URINE PROTEIN NEGATIVE (NEGATIVE); URINE RBC 3 /hpf (0-4); URINE WBC 4 /hpf (0-5)
[2019-06-14] MEDS ORDERED: FAMOTIDINE 20 MG/50 ML IVPB 20 MG/50 ML MG IVPB ONE ×4 (09:26→22:57)
[2019-06-14] MEDS ORDERED: CEPHALEXIN MONOHYDRATE 500 MG CAPSULE (UD) PO ONE (09:48)
[2019-06-14] MEDS ORDERED: CEPHALEXIN MONOHYDRATE 500 MG CAPSULE (UD) ONE (10:08)
[2019-06-14] MEDS ORDERED: FOLIC ACID INJECTION - 1 MG, THIAMINE HCL 100 MG, MULTIVIT INJECTION ADULT 10 ML in SOD... IVPB ONE (10:10)
[2019-06-14] MEDS: LACTATED RINGERS SOLUTION 1,000 ML IV SCH (11:12)
--- NOTE | 2019-06-14 11:26 | HP ---
CHIEF COMPLAINT: abdominal pain PCP: denies HISTORY OF PRESENT ILLNESS: This is a 43 y/o F with a strong ETOH abuse hx, aure en Y gastric bypass surgery, chronic liver failure, who p/w 01/29 sharp midepigastric pain since . Denies any association with foods, although improved with pepcid in ED. Pt states she has no fevers, chills, bowel/bladder complaints, cp, sob, nausea, vomiting. Pt last drink of alcohol was saturday (1-2 beers), but last month she stopped excessively drinking. Previously drinking 6 christi cocktails X 3 yrs every day. She states she goes to [facility] every day 4-6 PM for those 3 yrs. She has a fam hx of liver cirrhosis in her paternal uncle. Pt had prior egd and colonscopy prior to gastric aure and Y found to be normal. Pt denies any recent NSAIDs use or any signs of hematochexia, melena. She lives in [place] with her 10 y/o daughter who has psychiatric issues per the patient. ER course was notable for: (1) CT abd pelvis- hepatomegaly w/ diffuse fatty infiltration of liver, s/p cholecystectomy without evidence of acute pathology. (2) UA- 2+ leuk est (3)US abd- diffuse hepatic steatosis Recent Travel: denies PAST MEDICAL HISTORY: hypothyroidism PAST SURGICAL HISTORY: tubal ligation(1999), hernia operations @5y/o, cholecystectomy (2018), aure en y Social History: Smoking: quit saturday, denies MJA Alcohol:as above Drugs: denies Allergies shellfish derived Allergy (Severe, Verified 06/14/19 05:01) anaphylaxis heparin Allergy (Mild, Verified 06/14/19 05:01) burning sensation to skin HOME MEDICATIONS: Home Medications Medication Instructions Recorded Levothyroxine [Synthroid -] 88 mcg PO DAILY #30 tablet 09/30/18 REVIEW OF SYSTEMS Negative except above PHYSICAL EXAMINATION Vital Signs - 24 hr 06/14/19 05:01 Temperature 97.8 F Pulse Rate 93 H Respiratory 20 Rate Blood Pressure 118/73 O2 Sat by Pulse 100 Oximetry (%) GENERAL: Awake, alert, and fully oriented, in no acute distress. ENT- Tongue yellowing LUNGS: Breath sounds equal, clear to auscultation bilaterally. No wheezes, and no crackles. No accessory muscle use. HEART: Regular rate and rhythm, normal S1 and S2 without murmur, rub or gallop. ABDOMEN: Soft, tenderness to palpation, not distended, hyperactive bowel sounds noted hepatomegaly. LOWER EXTREMITIES: 2+ pulses, warm, well-perfused. No calf tenderness. No peripheral edema. NEUROLOGICAL: Cranial nerves II-XII intact. Normal speech. Normal gait. Laboratory Results - last 24 hr 06/14/19 06/14/19 06/14/19 05:23 05:23 05:23 WBC 4.3 RBC 3.03 L Hgb 9.2 L Hct 27.9 L MCV 92.1 MCH 30.4 D MCHC 33.0 RDW 20.2 H Plt Count 77 L D MPV 9.8 D Absolute Neuts (auto) 2.3 Neutrophils % 53.8 D Lymphocytes % 35.1 D Monocytes % 7.4 Eosinophils % 3.2 D Basophils % 0.5 Nucleated RBC % 0 PT with INR INR PTT (Actin FS) Sodium 138 Potassium 3.3 L Chloride 106 Carbon Dioxide 26 Anion Gap 6 L BUN 2.9 L* Creatinine 0.7 Est GFR (CKD-EPI)AfAm 122.99 Est GFR (CKD-EPI)NonAf 106.12 Random Glucose 100 Calcium 8.3 L Magnesium 2.1 Total Bilirubin 2.8 H Direct Bilirubin 1.5 H AST 289 H ALT 138 H Alkaline Phosphatase 183 H Total Protein 7.7 Albumin 3.1 L Lipase 194 Serum , Qual Urine Color Urine Appearance Urine pH Ur Specific [place] Urine Protein Urine Glucose (UA) Urine Ketones Urine Blood Urine Nitrite Urine Bilirubin Urine Urobilinogen Ur Leukocyte Esterase Urine WBC (Auto) Urine RBC (Auto) Urine Casts (Auto) U Epithel Cells (Auto) Urine Bacteria (Auto) Alcohol, Quantitative Blood Type Antibody Screen 06/14/19 06/14/19 06/14/19 05:23 05:38 06:10 WBC RBC Hgb Hct MCV MCH MCHC RDW Plt Count MPV Absolute Neuts (auto) Neutrophils % Lymphocytes % Monocytes % Eosinophils % Basophils % Nucleated RBC % PT with INR 15.30 H INR 1.29 H PTT (Actin FS) 39.6 H Sodium Potassium Chloride Carbon Dioxide Anion Gap BUN Creatinine Est GFR (CKD-EPI)AfAm Est GFR (CKD-EPI)NonAf Random Glucose Calcium Magnesium Total Bilirubin Direct Bilirubin AST ALT Alkaline Phosphatase Total Protein Albumin Lipase Serum , Qual Negative Urine Color Yellow Urine Appearance Clear Urine pH 6.5 Ur Specific [place] 1.008 L Urine Protein Negative Urine Glucose (UA) Negative Urine Ketones Negative Urine Blood Negative Urine Nitrite Negative Urine Bilirubin Negative Urine Urobilinogen 1.0 Ur Leukocyte Esterase 2+ H Urine WBC (Auto) 4 Urine RBC (Auto) 3 Urine Casts (Auto) 1 U Epithel Cells (Auto) 0.8 Urine Bacteria (Auto) 6.2 Alcohol, Quantitative Blood Type Antibody Screen 06/14/19 06/14/19 06:10 10:07 WBC RBC Hgb Hct MCV MCH MCHC RDW Plt Count MPV Absolute Neuts (auto) Neutrophils % Lymphocytes % Monocytes % Eosinophils % Basophils % Nucleated RBC % PT with INR INR PTT (Actin FS) Sodium Potassium Chloride Carbon Dioxide Anion Gap BUN Creatinine Est GFR (CKD-EPI)AfAm Est GFR (CKD-EPI)NonAf Random Glucose Calcium Magnesium Total Bilirubin Direct Bilirubin AST ALT Alkaline Phosphatase Total Protein Albumin Lipase Serum , Qual Urine Color Urine Appearance Urine pH Ur Specific [place] Urine Protein Urine Glucose (UA) Urine Ketones Urine Blood Urine Nitrite Urine Bilirubin Urine Urobilinogen Ur Leukocyte Esterase Urine WBC (Auto) Urine RBC (Auto) Urine Casts (Auto) U Epithel Cells (Auto) Urine Bacteria (Auto) Alcohol, Quantitative < 3 Blood Type O POSITIVE Antibody Screen Negative ASSESSMENT/PLAN: This is a 43 y/o F with a strong ETOH abuse hx, aure en Y gastric bypass surgery , chronic liver failure, who p/w 01/29 sharp midepigastric pain since . Denies any association with foods, although improved with pepcid in ED. Pt states she has no fevers, chills, bowel/bladder complaints, cp, sob, nausea, vomiting. #Hepatic Steatosis - 2/2 ETOH abuse - liver cirrhosis per US results - thrombocytopenia due to Liver failure likely due to splenic congestion/portal HTN - would need to assess for varices with EGD at some point to assess need for carvedilol/propanol futility in this pt. - INR not supratherapeutic yet which is a good sign - Hepatitis panel sent - Direct bili elevated indicating jaundice - no cbd dilation - AST/ALT- 289/138 - Maddreys score- 21 points (good prognosis) - Child Wagn class B- indication for transplant eval (30% periop mortality) #Anemia - iron studies ordered, Hgb 9.2 - no signs of overt bleeding - ferritin ordered - likely in setting of liver issues0 #Hypokalemia - repleted likely 2/2 poor PO intake. - rpt BMP for later No DVT ppx at this time given thrombocytopenia. Visit type - Emergency Visit Emergency Visit: Yes ED Registration Date: 06/14/19 Care time: The patient presented to the Emergency Department on the above date and was hospitalized for further evaluation of their emergent condition. - New Patient This patient is new to me today: Yes Date on this admission: 06/15/19 - Critical Care Critical Care patient: No ATTENDING PHYSICIAN STATEMENT I saw and evaluated the patient. I reviewed the resident's note and discussed the case with the resident. I agree with the resident's findings and plan as documented. SUBJECTIVE: OBJECTIVE: ASSESSMENT AND PLAN:
[2019-06-14] MEDS ORDERED: FOLIC ACID 1 MG TABLET (FP) PO ONE (11:27)
[2019-06-14] MEDS ORDERED: ONDANSETRON 4 MG TABLET PO PRN (11:36)
[2019-06-14] MEDS ORDERED: ONDANSETRON 4 MG TABLET PO SCH (11:45)
[2019-06-14] MEDS ORDERED: PANTOPRAZOLE 40 MG TABLET ONE (14:13)
[2019-06-14] MEDS: PANTOPRAZOLE 40 MG TABLET PO SCH (14:17)
--- NOTE | 2019-06-14 15:38 | CON.GI ---
Consult Consult Specialty:: GI Referred by:: Satish Ward Jr, MD Reason for Consultation:: Alcoholic hepatitis - History of Present Illness Chief Complaint: 43 y.o. woman with long history alcohol abuse, came to ER with RUQ pain x 3 days. Labs show elevated AST>ALT, bili 2.8, PT 15.3 sec. Pt has no prior history of alcoholic hepatitis. Last drink was 2 days ago. History of Present Illness: CBC,CMP WBC 4.3 K/mm3 (4.0-10.0) 06/14/19 05:23 RBC 3.03 M/mm3 (3.60-5.2) L 06/14/19 05:23 Hgb 9.2 GM/dL (10.7-15.3) L 06/14/19 05:23 Hct 27.9 % (32.4-45.2) L 06/14/19 05:23 MCV 92.1 fl (80-96) 06/14/19 05:23 MCH 30.4 pg (25.7-33.7) D 06/14/19 05:23 MCHC 33.0 g/dl (32.0-36.0) 06/14/19 05:23 RDW 20.2 % (11.6-15.6) H 06/14/19 05:23 Plt Count 77 K/MM3 (134-434) L D 06/14/19 05:23 MPV 9.8 fl (7.5-11.1) D 06/14/19 05:23 Absolute Neuts (auto) 2.3 K/mm3 (1.5-8.0) 06/14/19 05:23 Neutrophils % 53.8 % (42.8-82.8) D 06/14/19 05:23 Lymphocytes % 35.1 % (8-40) D 06/14/19 05:23 Monocytes % 7.4 % (3.8-10.2) 06/14/19 05:23 Eosinophils % 3.2 % (0-4.5) D 06/14/19 05:23 Basophils % 0.5 % (0-2.0) 06/14/19 05:23 Nucleated RBC % 0 % (0-0) 06/14/19 05:23 Sodium 138 mmol/L (136-145) 06/14/19 05:23 Potassium 3.3 mmol/L (3.5-5.1) L 06/14/19 05:23 Chloride 106 mmol/L (98-107) 06/14/19 05:23 Carbon Dioxide 26 mmol/L (21-32) 06/14/19 05:23 Anion Gap 6 MMOL/L (8-16) L 06/14/19 05:23 BUN 2.9 mg/dL (7-18) L* 06/14/19 05:23 Creatinine 0.7 mg/dL (0.55-1.3) 06/14/19 05:23 Est GFR (CKD-EPI)AfAm 122.99 06/14/19 05:23 Est GFR (CKD-EPI)NonAf 106.12 06/14/19 05:23 Random Glucose 100 mg/dL (74-106) 06/14/19 05:23 Calcium 8.3 mg/dL (8.5-10.1) L 06/14/19 05:23 Magnesium 2.1 mg/dL (1.8-2.4) 06/14/19 05:23 Total Bilirubin 2.8 mg/dL (0.2-1) H 06/14/19 05:23 Direct Bilirubin 1.5 mg/dL (0.0-0.2) H 06/14/19 05:23 AST 289 U/L (15-37) H 06/14/19 05:23 ALT 138 U/L (13-61) H 06/14/19 05:23 Alkaline Phosphatase 183 U/L (45-117) H 06/14/19 05:23 Total Protein 7.7 g/dl (6.4-8.2) 06/14/19 05:23 Albumin 3.1 g/dl (3.4-5.0) L 06/14/19 05:23 Lipase 194 U/L (73-393) 06/14/19 05:23 Serum , Qual Negative 06/14/19 05:23 - History Source History Provided By: Patient, Medical Record Limitations to Obtaining History: No Limitations - Past Medical History Endocrine: Yes: Hypothyroidism - Past Surgical History Past Surgical History: Yes: Cholecystectomy - Alcohol/Substance Use Hx Alcohol Use: Yes (pt vague as to amounts but admits to excessive intake) - Smoking History Smoking history: Former smoker Have you smoked in the past 12 months: No Aproximately how many cigarettes per day: 0 If you are a former smoker, when did you quit?: 2013 - Social History Usual Living Arrangement: Alone Home Medications - Allergies Allergies/Adverse Reactions: Allergies Allergy/AdvReac Type Severity Reaction Status Date / Time shellfish derived Allergy Severe anaphylaxis Verified 06/14/19 15:32 coumarin Allergy Intermediate Rash Verified 06/14/19 15:32 - Home Medications Home Medications: Ambulatory Orders Levothyroxine [Synthroid -] 88 mcg PO DAILY #30 tablet 09/30/18 Physical Exam-GI Vital Signs: Vital Signs Temperature 9.4 F L 06/14/19 13:00 Pulse Rate 83 06/14/19 13:00 Respiratory Rate 17 06/14/19 13:00 Blood Pressure 120/67 06/14/19 13:00 O2 Sat by Pulse Oximetry (%) 98 06/14/19 13:00 Labs: CBC, BMP 06/14/19 05:23 06/14/19 05:23 INR, PTT INR 1.29 (0.83-1.09) H 06/14/19 06:10 Imaging - Results Cat Scan: Report Reviewed, Image Reviewed (No sign of biliary tract dilation on either exam.) Ultrasound: Report Reviewed Problem List - Problems (1) Alcoholic hepatitis without ascites Code(s): K70.10 - ALCOHOLIC HEPATITIS WITHOUT ASCITES (2) Epigastric burning sensation Code(s): R10.13 - EPIGASTRIC PAIN (3) Palpitations Code(s): R00.2 - PALPITATIONS Assessment/Plan Alcoholic hepatitis; thrombocytopenia. The standard prognostic indicator for alcoholic hepatitis is Alice's discriminant function, which is calculated as 4.6x(PT-control)+bilirubin. Assuming a control of 12 secs, Bharti's value is 18. Values of 32 are associated with mortality rates in the 30-40% range and are an indication for treatment with steroids. Currently I would just monitor her INR and liver chemistries on a daily basis until it is clear whether she is improving or not. Would give thiamine and folic acid but no steroids or pentoxyfylline (also used for alc. hep.) at present.
[2019-06-14] MEDS ORDERED: HEPARIN NA (PORCINE) 5,000 UNITS/ML 1ML VIAL SQ SCH (18:00)
[2019-06-14 21:49] LABS: CALCIUM 8.2 mg/dL (8.5-10.1); CREATININE 0.8 mg/dL (0.55-1.3); POTASSIUM 3.5 mmol/L (3.5-5.1)
[2019-06-14 21:52] LABS: BLOOD UREA NITROGEN 1.9 mg/dL (7-18)
[2019-06-14] MEDS ORDERED: FAMOTIDINE 10 MG TABLET PO ONE (22:32)
[2019-06-15] MEDS ORDERED: MELATONIN 5 MG TABLETS PO ONE (00:21)
[2019-06-15] MEDS: LACTATED RINGERS SOLUTION 1,000 ML IV SCH ×3 (01:24→22:10)
[2019-06-15] MEDS: LEVOTHYROXINE NA 88 MCG TABLET (FP) PO SCH (06:12)
[2019-06-15 08:34] LABS: BASO % 0.7 % (0-2.0); EOS % 3.9 % (0-4.5); HEMATOCRIT 26.4 % (32.4-45.2); HEMOGLOBIN 8.5 GM/dL (10.7-15.3); LYMPH % 32.1 % (8-40); MCH 30.2 pg (25.7-33.7); MCHC 32.3 g/dl (32.0-36.0); MEAN CELL VOLUME 93.6 fl (80-96); MEAN PLT VOLUME 9.1 fl (7.5-11.1); NEUT % 54.3 % (42.8-82.8); PLATELET COUNT 75 K/MM3 (134-434); RBC 2.82 M/mm3 (3.60-5.2); RDW 21.3 % (11.6-15.6); RETICULOCYTES 2.65 % (0.5-1.5); WHITE BLOOD COUNT 3.6 K/mm3 (4.0-10.0)
[2019-06-15 08:47] LABS: INR 1.23 (0.83-1.09); PROTHROMBIN TIME (PATIENT) 14.5 SEC (9.7-13.0)
[2019-06-15 09:17] LABS: ALBUMIN 2.9 g/dl (3.4-5.0); BILIRUBIN,TOTAL 2.6 mg/dL (0.2-1); CALCIUM 8.6 mg/dL (8.5-10.1); CREATININE 0.7 mg/dL (0.55-1.3); MAGNESIUM 2.1 mg/dL (1.8-2.4); PHOSPHOROUS 2.7 mg/dL (2.5-4.9); POTASSIUM 3.6 mmol/L (3.5-5.1); TOT PROT 7.2 g/dl (6.4-8.2)
--- NOTE | 2019-06-15 09:36 | EKG ---
Test Reason : Blood Pressure : / mmHG Vent. Rate : 082 BPM Atrial Rate : 082 BPM P-R Int : 152 ms QRS Dur : 084 ms QT Int : 374 ms P-R-T Axes : 073 020 035 degrees QTc Int : 436 ms NORMAL SINUS RHYTHM CANNOT RULE OUT ANTERIOR INFARCT , AGE UNDETERMINED ABNORMAL ECG WHEN COMPARED WITH ECG OF 30-SEP-2018 16:24, NO SIGNIFICANT CHANGE WAS FOUND Confirmed by Abdulaziz Pichardo ([id number]) on 06/15/2019 9:36:04 AM Referred By: Confirmed By:Abdulaziz Pichardo
[2019-06-15 09:59] LABS: BLOOD UREA NITROGEN 2.3 mg/dL (7-18)
[2019-06-15] MEDS: FOLIC ACID 1 MG TABLET (FP) PO SCH (10:30)
[2019-06-15] MEDS: PANTOPRAZOLE 40 MG TABLET PO SCH (10:30)
[2019-06-15] MEDS: THIAMINE HCL 100 MG TABLET (FP) PO SCH (10:30)
[2019-06-15] MEDS ORDERED: FLUCONAZOLE 150 MG TABLET PO ONE (11:00)
[2019-06-15 12:16] LABS: ANISOCYTOSIS 2+; MACROCYTOSIS 1+; PLATELET ESTIMATE DECREASED; TEAR DROP CELLS 1+
--- NOTE | 2019-06-15 13:51 | PN ---
Physical Exam: SUBJECTIVE: Patient seen and examined. No acute events, would like ambien to help with sleep. Complaining of nausea but improved later in day. OBJECTIVE: Vital Signs Period Temp Pulse Resp BP Sys/Collins Pulse Ox Last 24 Hr 98.2 F-98.8 F 81-91 16-20 106-127/62-83 99-100 GENERAL: The patient is awake, alert, and fully oriented, in no acute distress. LUNGS: Breath sounds equal, clear to auscultation bilaterally, no wheezes, no crackles, no accessory muscle use. HEART: Regular rate and rhythm, S1, S2 without murmur, rub or gallop. ABDOMEN: Soft, minimally tender to palpation, nondistended EXTREMITIES: 2+ pulses, warm, well-perfused, no edema. NEUROLOGICAL: Cranial nerves II through XII grossly intact. Normal speech, gait not observed. PSYCH: Normal mood, normal affect. SKIN: Warm, dry, no rashes or lesions noted Laboratory Results - last 24 hr 06/14/19 06/15/19 06/15/19 20:40 08:15 08:15 WBC 3.6 L RBC 2.82 L Hgb 8.5 L Hct 26.4 L MCV 93.6 MCH 30.2 MCHC 32.3 RDW 21.3 H Plt Count 75 L MPV 9.1 Absolute Neuts (auto) 2.0 Neutrophils % 54.3 Lymphocytes % 32.1 Monocytes % 9.0 Eosinophils % 3.9 Basophils % 0.7 Nucleated RBC % 0 Hypochromia 0 Platelet Estimate Decreased Platelet Comment Present Polychromasia 1+ Poikilocytosis 1+ Anisocytosis 2+ Microcytosis 1+ Macrocytosis 1+ Spherocytes 1+ Tear Drop Cells 1+ Stomatocytes 2+ Retic Count 2.65 H PT with INR 14.50 H INR 1.23 H Sodium 138 Potassium 3.5 Chloride 108 H Carbon Dioxide 24 Anion Gap 6 L BUN 1.9 L* Creatinine 0.8 Est GFR (CKD-EPI)AfAm 104.65 Est GFR (CKD-EPI)NonAf 90.30 Random Glucose 76 Calcium 8.2 L Phosphorus Magnesium Iron TIBC Iron Saturation Unsaturated IBC Ferritin Total Bilirubin AST ALT Alkaline Phosphatase Total Protein Albumin Lipase Vitamin B12 Serum Folate 06/15/19 06/15/19 08:15 08:15 WBC RBC Hgb Hct MCV MCH MCHC RDW Plt Count MPV Absolute Neuts (auto) Neutrophils % Lymphocytes % Monocytes % Eosinophils % Basophils % Nucleated RBC % Hypochromia Platelet Estimate Platelet Comment Polychromasia Poikilocytosis Anisocytosis Microcytosis Macrocytosis Spherocytes Tear Drop Cells Stomatocytes Retic Count PT with INR INR Sodium 138 Potassium 3.6 Chloride 108 H Carbon Dioxide 25 Anion Gap 6 L BUN 2.3 L* Creatinine 0.7 Est GFR (CKD-EPI)AfAm 122.99 Est GFR (CKD-EPI)NonAf 106.12 Random Glucose 86 Calcium 8.6 Phosphorus 2.7 Magnesium 2.1 Iron 71 TIBC 352 Iron Saturation 20 Unsaturated IBC 281 H Ferritin 95.6 Total Bilirubin 2.6 H AST 140 H ALT 95 H Alkaline Phosphatase 149 H Total Protein 7.2 Albumin 2.9 L Lipase 115 Vitamin B12 646 Serum Folate 24 H Active Medications Generic Name Dose Route Start Last Admin Trade Name Freq PRN Reason Stop Dose Admin Folic Acid 1 mg 06/15/19 10:00 06/15/19 10:30 Folic Acid - PO 1 mg DAILY ADY Administration Lactated Ringer's 1,000 mls @ 75 mls/hr 06/14/19 11:15 06/15/19 11:59 Lactated Ringers Solution IV Not Given ASDIR ADY Levothyroxine Sodium 88 mcg 06/15/19 07:00 06/15/19 06:12 Synthroid - PO 88 mcg DAILY@0700 ADY Administration Ondansetron HCl 4 mg 06/14/19 11:36 Zofran - PO Q8H PRN NAUSEA Pantoprazole Sodium 40 mg 06/14/19 13:45 06/15/19 10:30 Protonix - PO 40 mg DAILY ADY Administration Thiamine HCl 100 mg 06/15/19 10:00 06/15/19 10:30 Vitamin B1 - PO 100 mg DAILY ADY Administration Zolpidem Tartrate 5 mg 06/15/19 13:50 Ambien - PO HS PRN INSOMNIA ASSESSMENT/PLAN: This is a 43 y/o F with a strong ETOH abuse hx, aure en Y gastric bypass surgery , chronic liver failure, who p/w 10 sharp midepigastric pain since . Denies any association with foods, although improved with pepcid in ED. Pt states she has no fevers, chills, bowel/bladder complaints, cp, sob, nausea, vomiting. #Hepatic Steatosis/Alcoholic hepatitis - 2/2 ETOH abuse - Hepatic steatosis per US results - thrombocytopenia due to Liver failure likely in light of splenic congestion/ portal HTN - would need to assess for varices with EGD at some point to assess need for carvedilol/propanol futility in this pt. - INR increased to 1.23 today. Continuing to trend INR and LFT's - counseled on alcohol cessation - Hepatitis panel sent, thiamine folate continued, not withdrawing at this time - Direct bili elevated indicating jaundice, but downtrended today. Will continue to monitor. - AST/ALT- 289/138-> 140/95 - Maddreys score- 21 points (good prognosis) no indication for steroids or pentoxifyline - Child Wang class B- indication for transplant eval (30% periop mortality) #Normocytic Anemia/Pancytopenia - iron studies pending, Hgb 9.2 - likely 2/2 ETOH use - no signs of overt bleeding - ferritin normal - likely in setting of liver issues0 - B12, Folate normal #Hypokalemia - repleted likely 2/2 poor PO intake/hx of gastric bypass - rpt BMP normal #Hypothyroidism - continue synthroid No DVT ppx at this time given thrombocytopenia. Visit type - Emergency Visit Emergency Visit: Yes ED Registration Date: 06/14/19 Care time: The patient presented to the Emergency Department on the above date and was hospitalized for further evaluation of their emergent condition. - New Patient This patient is new to me today: No - Critical Care Critical Care patient: No - Discharge Referral Referred to [facility] No ATTENDING PHYSICIAN STATEMENT I saw and evaluated the patient. I reviewed the resident's note and discussed the case with the resident. I agree with the resident's findings and plan as documented. SUBJECTIVE: OBJECTIVE: ASSESSMENT AND PLAN:
--- NOTE | 2019-06-15 14:17 | PN ---
Progress Note (short form) - Note Progress Note: GI f/u Pt seen eating lunch Feels better, abdominal pain improved NAD Slight icterus Vital Signs Temp 98.8 F 06/15/19 10:00 Pulse 81 06/15/19 10:00 Resp 18 06/15/19 10:00 BP 127/83 06/15/19 10:00 Pulse Ox 100 06/15/19 00:47 Hepatic Panel Total Bilirubin 2.6 mg/dL (0.2-1) H 06/15/19 08:15 Direct Bilirubin 1.5 mg/dL (0.0-0.2) H 06/14/19 05:23 AST 140 U/L (15-37) H 06/15/19 08:15 ALT 95 U/L (13-61) H 06/15/19 08:15 Alkaline Phosphatase 149 U/L (45-117) H 06/15/19 08:15 Albumin 2.9 g/dl (3.4-5.0) L 06/15/19 08:[address] reviewed, s/p cholecystectomy and normal bile duct Mild ETOH hepatitis - improved Continue to trend LFTs and INR daily ETOH cessation discussed
--- NOTE | 2019-06-15 14:31 | PN ---
Teaching Attending Note Name of Resident: Satish Ward ATTENDING PHYSICIAN STATEMENT I saw and evaluated the patient. I reviewed the resident's note and discussed the case with the resident. I agree with the resident's findings and plan as documented. SUBJECTIVE: Patient says she feels better. She denies abdominal pain. OBJECTIVE: Vital Signs Period Temp Pulse Resp BP Sys/Collins Pulse Ox Last 24 Hr 98.2 F-98.8 F 81-91 16-20 106-127/62-83 99-100 GENERAL: No distress, mild jaundice HEART: S1S2, RRR LUNGS: Clear ABDOMEN: Soft, non-tender, non-distended, normal BS EXTREMITIES: No edema Laboratory Results - last 24 hr 06/14/19 06/15/19 06/15/19 20:40 08:15 08:15 WBC 3.6 L RBC 2.82 L Hgb 8.5 L Hct 26.4 L MCV 93.6 MCH 30.2 MCHC 32.3 RDW 21.3 H Plt Count 75 L MPV 9.1 Absolute Neuts (auto) 2.0 Neutrophils % 54.3 Lymphocytes % 32.1 Monocytes % 9.0 Eosinophils % 3.9 Basophils % 0.7 Nucleated RBC % 0 Hypochromia 0 Platelet Estimate Decreased Platelet Comment Present Polychromasia 1+ Poikilocytosis 1+ Anisocytosis 2+ Microcytosis 1+ Macrocytosis 1+ Spherocytes 1+ Tear Drop Cells 1+ Stomatocytes 2+ Retic Count 2.65 H PT with INR 14.50 H INR 1.23 H Sodium 138 Potassium 3.5 Chloride 108 H Carbon Dioxide 24 Anion Gap 6 L BUN 1.9 L* Creatinine 0.8 Est GFR (CKD-EPI)AfAm 104.65 Est GFR (CKD-EPI)NonAf 90.30 Random Glucose 76 Calcium 8.2 L Phosphorus Magnesium Iron TIBC Iron Saturation Unsaturated IBC Ferritin Total Bilirubin AST ALT Alkaline Phosphatase Total Protein Albumin Lipase Vitamin B12 Serum Folate 06/15/19 06/15/19 08:15 08:15 WBC RBC Hgb Hct MCV MCH MCHC RDW Plt Count MPV Absolute Neuts (auto) Neutrophils % Lymphocytes % Monocytes % Eosinophils % Basophils % Nucleated RBC % Hypochromia Platelet Estimate Platelet Comment Polychromasia Poikilocytosis Anisocytosis Microcytosis Macrocytosis Spherocytes Tear Drop Cells Stomatocytes Retic Count PT with INR INR Sodium 138 Potassium 3.6 Chloride 108 H Carbon Dioxide 25 Anion Gap 6 L BUN 2.3 L* Creatinine 0.7 Est GFR (CKD-EPI)AfAm 122.99 Est GFR (CKD-EPI)NonAf 106.12 Random Glucose 86 Calcium 8.6 Phosphorus 2.7 Magnesium 2.1 Iron 71 TIBC 352 Iron Saturation 20 Unsaturated IBC 281 H Ferritin 95.6 Total Bilirubin 2.6 H AST 140 H ALT 95 H Alkaline Phosphatase 149 H Total Protein 7.2 Albumin 2.9 L Lipase 115 Vitamin B12 646 Serum Folate 24 H Current Medications Generic Name Dose Route Start Last Admin Trade Name Freq PRN Reason Stop Dose Admin Folic Acid 1 mg 06/15/19 10:00 06/15/19 10:30 Folic Acid - PO 1 mg DAILY ADY Administration Lactated Ringer's 1,000 mls @ 75 mls/hr 06/14/19 11:15 06/15/19 11:59 Lactated Ringers Solution IV Not Given ASDIR ADY Levothyroxine Sodium 88 mcg 06/15/19 07:00 06/15/19 06:12 Synthroid - PO 88 mcg DAILY@0700 ADY Administration Ondansetron HCl 4 mg 06/14/19 11:36 Zofran - PO Q8H PRN NAUSEA Pantoprazole Sodium 40 mg 06/14/19 13:45 06/15/19 10:30 Protonix - PO 40 mg DAILY ADY Administration Thiamine HCl 100 mg 06/15/19 10:00 06/15/19 10:30 Vitamin B1 - PO 100 mg DAILY ADY Administration Zolpidem Tartrate 5 mg 06/15/19 22:00 Ambien - PO HS PRN INSOMNIA ASSESSMENT AND PLAN: This is a 43 year old woman with a history of alcohol abuse, hypothyroidism, Jose-en-Y gastric bypass, anemia who presented to the ED with epigastric pain. 1. Acute alcoholic hepatitis - LFTs improving - No indication for steroids - Discussed abstinence from alcohol 2. Continuous alcohol dependence - No signs of withdrawal - Continue thiamine, folic acid 3. Pancytopenia - Iron studies, B12, folate all normal - Likely secondary to alcohol use - Monitor CBC 4. Hypothyroidism - Continue Synthroid 5. Hypokalemia - Improved 6. History of gastric bypass
[2019-06-15] MEDS ORDERED: ZOLPIDEM TARTRATE 5 MG TABLET PO PRN (22:00)
[2019-06-16] MEDS: LEVOTHYROXINE NA 88 MCG TABLET (FP) PO SCH (06:05)
[2019-06-16 07:43] LABS: BASO % 0.9 % (0-2.0); EOS % 4.1 % (0-4.5); HEMATOCRIT 25.8 % (32.4-45.2); HEMOGLOBIN 8.3 GM/dL (10.7-15.3); LYMPH % 32.9 % (8-40); MCH 30.9 pg (25.7-33.7); MCHC 32.2 g/dl (32.0-36.0); MEAN CELL VOLUME 96.1 fl (80-96); MEAN PLT VOLUME 9.8 fl (7.5-11.1); MONO % 10.1 % (3.8-10.2); PLATELET COUNT 78 K/MM3 (134-434); RBC 2.68 M/mm3 (3.60-5.2); RDW 21.9 % (11.6-15.6); WHITE BLOOD COUNT 3.7 K/mm3 (4.0-10.0)
[2019-06-16 08:13] LABS: INR 1.23 (0.83-1.09); PROTHROMBIN TIME (PATIENT) 14.5 SEC (9.7-13.0)
[2019-06-16 08:16] LABS: ALBUMIN 2.8 g/dl (3.4-5.0); BILIRUBIN,TOTAL 2.1 mg/dL (0.2-1); BLOOD UREA NITROGEN 3.5 mg/dL (7-18); CALCIUM 8.4 mg/dL (8.5-10.1); CREATININE 0.8 mg/dL (0.55-1.3); POTASSIUM 3.5 mmol/L (3.5-5.1)
[2019-06-16] MEDS: THIAMINE HCL 100 MG TABLET (FP) PO SCH (10:47)
[2019-06-16] MEDS: PANTOPRAZOLE 40 MG TABLET PO SCH (10:48)
[2019-06-16] MEDS: FOLIC ACID 1 MG TABLET (FP) PO SCH (10:48)
[2019-06-16 12:50] VITALS: BP 122/73; PULSE 83; TEMP 97.6
--- NOTE | 2019-06-16 13:47 | DS ---
Physical Exam: SUBJECTIVE: Patient seen and examined. No acute events. Sleeping well with ambien. OBJECTIVE: Vital Signs Period Temp Pulse Resp BP Sys/Collins Pulse Ox Last 24 Hr 97.6 F-99.4 F 67-85 18-20 110-122/60-76 PHYSICAL EXAM GENERAL: The patient is awake, alert, and fully oriented, in no acute distress. LUNGS: Breath sounds equal, clear to auscultation bilaterally, no wheezes, no crackles, no accessory muscle use. HEART: Regular rate and rhythm, S1, S2 without murmur, rub or gallop. ABDOMEN: Soft, nontender, nondistended, normoactive bowel sounds. EXTREMITIES: 2+ pulses, warm, well-perfused, no edema. SKIN: jaundice improved LABS Laboratory Results - last 24 hr 06/14/19 06/14/19 06/16/19 05:32 10:56 07:14 WBC 3.7 L RBC 2.68 L Hgb 8.3 L Hct 25.8 L MCV 96.1 H MCH 30.9 MCHC 32.2 RDW 21.9 H Plt Count 78 L MPV 9.8 Absolute Neuts (auto) 1.9 Neutrophils % 52.0 Lymphocytes % 32.9 Monocytes % 10.1 Eosinophils % 4.1 Basophils % 0.9 Nucleated RBC % 0 PT with INR INR Sodium Potassium Chloride Carbon Dioxide Anion Gap BUN Creatinine Est GFR (CKD-EPI)AfAm Est GFR (CKD-EPI)NonAf Random Glucose Calcium Total Bilirubin AST ALT Alkaline Phosphatase Total Protein Albumin U Ethyl Glucuronide Negative Hep A IgM Ab Confirm Negative Hep Bs Antigen Negative Hep B Core IgM Ab Negative Hepatitis C Ab (EIA) <0.1 06/16/19 06/16/19 07:14 07:14 WBC RBC Hgb Hct MCV MCH MCHC RDW Plt Count MPV Absolute Neuts (auto) Neutrophils % Lymphocytes % Monocytes % Eosinophils % Basophils % Nucleated RBC % PT with INR 14.50 H INR 1.23 H Sodium 139 Potassium 3.5 Chloride 108 H Carbon Dioxide 26 Anion Gap 5 L BUN 3.5 L Creatinine 0.8 Est GFR (CKD-EPI)AfAm 104.65 Est GFR (CKD-EPI)NonAf 90.30 Random Glucose 108 H Calcium 8.4 L Total Bilirubin 2.1 H AST 93 H ALT 74 H Alkaline Phosphatase 137 H Total Protein 7.0 Albumin 2.8 L U Ethyl Glucuronide Hep A IgM Ab Confirm Hep Bs Antigen Hep B Core IgM Ab Hepatitis C Ab (EIA) HOSPITAL COURSE: Date of Admission:06/14/19 This is a 43 y/o F with a strong ETOH abuse hx, aure en Y gastric bypass surgery , chronic liver failure, who was admitted for possible acute alcohol hepatitis. She was seen by GI (Dr. Saunders) who was concerned for acute liver failure given transaminases were higher than usual and the tbili and direct bili were elevated and last time pt here were not elevated. Pt was monitored here treated with IV fluids and pt found to have hepatic steatosis on US and pt given folate and thiamine. Her Maddrey score was 21 not requiring steroids/pentoxifyline. Child caceres class B- 30% periop mortality. Not a candidate for transplant given ETOH hx but pt not cirrhotic at this time anyway. Pt was also found to be pancytopenic with normal B12 and elevated folate so it could be 2/2 ETOH induced bone marrow suppression vs heme disorder so had pt follow up with Denisha ( [facility]) for this. Date of Discharge: 06/16/19 Minutes to complete discharge: 35 Discharge Summary Problems reviewed: Yes Reason For Visit: UTI; ELEVATED TRANSAMINASE; LIVER FAILURE Current Active Problems Alcoholic hepatitis without ascites (Acute) Elevated bilirubin (Acute) Hypokalemia (Acute) Liver failure (Acute) RUQ pain (Acute) Thrombocytopenia (Acute) Transaminitis (Acute) UTI (urinary tract infection) (Acute) Condition: Improved - Instructions Diet, Activity, Other Instructions: You were admitted for alcohol abuse. You were monitored in the hospital for liver damage. You were seen by a liver specialist (Dr. Saunders) who recommends discontinuing your alcohol use. You were also monitored for signs of bleeding given your blood counts were low (platelets, Hemoglobin). You will be following up as below for the above forementioned issues. Follow-ups: You should follow up with your primary care doctor in the [facility] clinic with Dr. Satish Ward. You should follow up with a county court judge (blood doctor) Dr. Sigala after you leave here because your blood counts like your platelets were low which could be from your alcohol abuse. Please follow up with hematology regarding this. You should follow up with Dr. Saunders in his office in 1 week after discharge. You have also been given a referral for an national opelint analyst, Dr. Miller for outpatient follow up of your thyroid levels. Medications to start taking at home: Thiamine 100mg by mouth once a day Folic acid 1 tablet by mouth once a day Protonix 40 mg by mouth once a day You should continue your home medications as prescribed. You should return return to the emergency room if you have any worsening of your current symptoms or: chest pain, shortness of breath, abdominal pain, or weakness in your extremities. Referrals: [facility] [place] [facility] [place] [Provider Group] - 1 Week Robert Dawson MD [Staff Physician] - 1 Week Roberth Sigala MD [Staff Physician] - Satish Ward RES [Resident] - Linda Miller MD [Staff Physician] - Rebel Saunders MD [Staff Physician] - Disposition: HOME - Home Medications Comprehensive Discharge Medication List: Ambulatory Orders Levothyroxine [Synthroid -] 88 mcg PO DAILY #30 tablet 09/30/18 Folic Acid - 1 mg PO DAILY #30 tablet 06/16/19 Pantoprazole Sodium [Protonix -] 40 mg PO DAILY #30 tablet.ec 06/16/19 Thiamine HCl [Vitamin B1 -] 100 mg PO DAILY #30 tablet 06/16/19 Zolpidem Tartrate [Ambien] 10 mg PO HS PRN 06/16/19 This patient is new to me today: No Emergency Visit: Yes ED Registration Date: 06/14/19 Care time: The patient presented to the Emergency Department on the above date and was hospitalized for further evaluation of their emergent condition. Critical Care patient: No - Discharge Referral Referred to [facility] No ATTENDING PHYSICIAN STATEMENT I saw and evaluated the patient. I reviewed the resident's note and discussed the case with the resident. I agree with the resident's findings and plan as documented. SUBJECTIVE: OBJECTIVE: ASSESSMENT AND PLAN:
--- NOTE | 2019-06-16 16:51 | PN ---
Teaching Attending Note Name of Resident: Satish Ward ATTENDING PHYSICIAN STATEMENT I saw and evaluated the patient. I reviewed the resident's note and discussed the case with the resident. I agree with the resident's findings and plan as documented. SUBJECTIVE: Feels much better. No further abdominal pain. No nausea/vomiting. No dysuria/diarrhea. No fever/chills. OBJECTIVE: Afebrile, Hemodynamically stable. Last Vital Signs Temp Pulse Resp BP Pulse Ox 97.6 F 83 18 122/73 100 06/16/19 10:06/16/19 10:06/16/19 10:06/16/19 10:06/15/19 00:47 HEENT: Atraumatic, normocephalic. Some icterus + HEART: S1, S2, RRR LUNGS: Clear to auscultation ABDOMEN: Soft, non-tender, non-distended, normal BS EXTREMITIES: No edema, no calf tenderness. Laboratory Results - last 24 hr 06/14/19 06/16/19 06/16/19 10:56 07:14 07:14 WBC 3.7 L RBC 2.68 L Hgb 8.3 L Hct 25.8 L MCV 96.1 H MCH 30.9 MCHC 32.2 RDW 21.9 H Plt Count 78 L MPV 9.8 Absolute Neuts (auto) 1.9 Neutrophils % 52.0 Lymphocytes % 32.9 Monocytes % 10.1 Eosinophils % 4.1 Basophils % 0.9 Nucleated RBC % 0 PT with INR INR Sodium 139 Potassium 3.5 Chloride 108 H Carbon Dioxide 26 Anion Gap 5 L BUN 3.5 L Creatinine 0.8 Est GFR (CKD-EPI)AfAm 104.65 Est GFR (CKD-EPI)NonAf 90.30 Random Glucose 108 H Calcium 8.4 L Total Bilirubin 2.1 H AST 93 H ALT 74 H Alkaline Phosphatase 137 H Total Protein 7.0 Albumin 2.8 L U Ethyl Glucuronide Negative 06/16/19 07:14 WBC RBC Hgb Hct MCV MCH MCHC RDW Plt Count MPV Absolute Neuts (auto) Neutrophils % Lymphocytes % Monocytes % Eosinophils % Basophils % Nucleated RBC % PT with INR 14.50 H INR 1.23 H Sodium Potassium Chloride Carbon Dioxide Anion Gap BUN Creatinine Est GFR (CKD-EPI)AfAm Est GFR (CKD-EPI)NonAf Random Glucose Calcium Total Bilirubin AST ALT Alkaline Phosphatase Total Protein Albumin U Ethyl Glucuronide Discharge Medications Medication Instructions Recorded Levothyroxine [Synthroid -] 88 mcg PO DAILY #30 tablet 09/30/18 Folic Acid - 1 mg PO DAILY #30 tablet 06/16/19 Pantoprazole Sodium [Protonix -] 40 mg PO DAILY #30 tablet.ec 06/16/19 Thiamine HCl [Vitamin B1 -] 100 mg PO DAILY #30 tablet 06/16/19 Zolpidem Tartrate [Ambien] 10 mg PO HS PRN 06/16/19 ASSESSMENT AND PLAN: 43 year old female with a history of alcohol abuse, hypothyroidism, s/p Jose-en- Y gastric bypass, anemia who presented to the ED with epigastric pain. 1. Acute alcoholic hepatitis - LFTs improving. Discriminant function below threshold for steroid therapy. Symptoms resolved. Counseled regarding alcohol cessation 2. Alcohol abuse No evidence of withdrawal Medically stable for discharge on Thiamine, Folic Acid. 3. Panctopenia and Macrocytosis sec to Alcohol Excess B12/Folate levels normal. Hematology referral on discharge for follow up and monitoring. 3. Hypothyroidism - Continue Synthroid Medically stable for discharge with follow up by PCP, Hematology, and Gastroenterology.
== END 2019-06-16 14:36 | disposition home or self-care (01) | DRG 433 ==
LOC: JER 04:44 → JERBED 10:13 → J8W 23:58
PROVIDERS: ADMIT Internal Medicine
DX: K70.10 Alcoholic hepatitis without ascites (principal); D61.818 Other pancytopenia; E03.9 Hypothyroidism, unspecified; L30.9 Dermatitis, unspecified; K72.10 Chronic hepatic failure without coma; E87.6 Hypokalemia; R16.0 Hepatomegaly, not elsewhere classified; K76.0 Fatty (change of) liver, not elsewhere classified; D64.9 Anemia, unspecified; Z87.891 Personal history of nicotine dependence; R00.2 Palpitations; F10.20 Alcohol dependence, uncomplicated
CPT/HCPCS: 36415; 74177-TC; 76705-TC; 80048; 80053; 80074; 80307; 81003; 82248; 82607; 82728; 82746; 83540; 83550; 83690; 83735; 84100; 84703; 85025; 85044; 85610; 85730; 86850; 86900; 86901; 87086; 93005; 93010; 99285-25; J7030; Q9967

== ENCOUNTER 2019-06-17 12:36 | Emergency (ER) | payer BC ==
[2019-06-17 12:41] VITALS: BP 135/86; PULSE 72; TEMP 98; BMI 25.1
[2019-06-17] MEDS ORDERED: AZITHROMYCIN 500 MG TABLET PO ONE (13:11)
[2019-06-17] MEDS ORDERED: AZITHROMYCIN 250 MG TABLET ONE (13:17)
--- NOTE | 2019-06-17 13:17 | PDOC ---
History of Present Illness - General Chief Complaint: Vaginal Sxs Stated Complaint: STD testing, vag discharge Time Seen by Provider: 06/17/19 12:46 History Source: Patient Exam Limitations: No Limitations Past History - Travel Traveled outside of the country in the last 30 days: No Close contact w/someone who was outside of country & ill: No - Past Medical History Allergies/Adverse Reactions: Allergies Allergy/AdvReac Type Severity Reaction Status Date / Time shellfish derived Allergy Severe anaphylaxis Verified 06/17/19 12:41 coumarin Allergy Intermediate Rash Verified 06/17/19 12:41 Home Medications: Ambulatory Orders Levothyroxine [Synthroid -] 88 mcg PO DAILY #30 tablet 09/30/18 Folic Acid - 1 mg PO DAILY #30 tablet 06/16/19 Pantoprazole Sodium [Protonix -] 40 mg PO DAILY #30 tablet.ec 06/16/19 Thiamine HCl [Vitamin B1 -] 100 mg PO DAILY #30 tablet 06/16/19 Zolpidem Tartrate [Ambien] 10 mg PO HS PRN 06/16/19 metroNIDAZOLE [Metronidazole] 500 mg PO BID #14 tablet 06/17/19 Anemia: Yes Asthma: Yes Cardiac Disorders: No COPD: No CHF: Yes GI Disorders: Yes (Acid Reflux, Hernia) Disorders: Yes (freq UTI) Liver Disease: Yes (family hx) Thyroid Disease: Yes (HYPO) - Surgical History Abdominal Surgery: Yes (GASTRIC BYPASS: 01/20/2013, B/L HERNIA) Cholecystectomy: Yes Orthopedic Surgery: Yes (Ankle) - Reproductive History Therapeutic (s) & number: No - Immunization History Immunization Up to Date: Yes - Psycho Social/Smoking Cessation Hx Smoking History: Never smoked Have you smoked in the past 12 months: Yes Number of Cigarettes Smoked Daily: 0 If you are a former smoker, when did you quit?: Last Week Information on smoking cessation initiated: No 'Breaking Loose' booklet given: 06/15/19 Hx Alcohol Use: No Drug/Substance Use Hx: No Substance Use Type: Alcohol Hx Substance Use Treatment: No Review of Systems - Review of Systems Able to Perform ROS?: Yes Comments:: 06/17/19 13:36 CONSTITUTIONAL: Absent: fever, chills, diaphoresis, generalized weakness, malaise, loss of appetite GASTROINTESTINAL: Absent: abdominal pain, abdominal distension, nausea, vomiting, diarrhea, constipation, melena, hematochezia GENITOURINARY: Present: vaginal discharge Absent: dysuria, frequency, urgency, hesitancy, hematuria, flank pain, genital pain MUSCULOSKELETAL: Absent: myalgia, arthralgia, joint swelling SKIN: Absent: rash, itching, pallor NEUROLOGIC: Absent: headache, focal weakness or paresthesias, dizziness, unsteady gait, seizure, mental status changes, bladder or bowel incontinence PSYCHIATRIC: Absent: anxiety, depression, suicidal or homicidal ideation, hallucinations. Is the patient limited [place] proficient: No *Physical Exam - Vital Signs Last Vital Signs Temp Pulse Resp BP Pulse Ox 98 F 72 18 135/86 100 06/17/19 12:39 06/17/19 12:39 06/17/19 12:39 06/17/19 12:39 06/17/19 12:39 - Physical Exam 06/17/19 13:40 GENERAL: The patient is awake, alert, and fully oriented, in no acute distress. HEAD: Normal with no signs of trauma. EYES: Pupils equal, round and reactive to light, extraocular movements intact, sclera anicteric, conjunctiva clear. PELVIC: External genitalia normal without lesions. Vaginal vault with thick yellow creamy discharge with foul odor. Cervix is long and closed. No cervical motion tenderness. Uterus is nontender and normal in size. Adnexa are nontender and without masses. EXTREMITIES: Normal range of motion, no edema. NEUROLOGICAL: Normal speech, normal gait. PSYCH: Normal mood, normal affect. SKIN: Warm, Dry, normal turgor, no rashes or lesions noted. Medical Decision Making - Medical Decision Making 06/17/19 13:41 The patient is a 43-year-old female with past medical history of alcoholism, transaminitis, presents to the ER today for vaginal discharge. She states that the discharge started yesterday and she was given fluconazole. Today she notes that the discharge is yellow, creamy and shows a foul odor. She states her last sexual contact was in March and was a new partner. She states she tested HIV negative while she was in the hospital this week. Denies abdominal pain, dysuria, hematuria, nausea, vomiting and diarrhea. A/P: Vaginal discharge On exam the vaginal discharge is creamy, thick and yellow appearing. It also has a foul odor to it. No CMT or adnexal tenderness. Probable STD versus BV infection. Patient treated prophylactically for gonorrhea and chlamydia. Metronidazole prescription sent to patient pharmacy for BV infection. Patient given [facility] referral. Discharge home I discussed the physical exam findings, ancillary test results and final diagnoses with the patient. I answered all of the patient's questions. The patient was satisfied with the care received and felt comfortable with the discharge plan and treatment plan. The Patient agrees to follow up with the primary care physician/specialist within 24-72 hours. Return precautions were given. Discharge - Discharge Information Problems reviewed: Yes Clinical Impression/Diagnosis: Vaginal discharge Condition: Stable Disposition: HOME - Admission No - Additional Discharge Information Prescriptions: metroNIDAZOLE [Metronidazole] 500 mg PO BID #14 tablet - Follow up/Referral Referrals: Dennis Glover MD [Staff Physician] - - Patient Discharge Instructions Patient Printed Discharge Instructions: DI for Vaginal Discharge Additional Instructions: You were evaluated for your vaginal discharge today. You were treated prophylactically for STDs including gonorrhea and chlamydia. You most likely also have a bacterial vaginosis infection. Please take the metronidazole twice a day for 1 week to help with the discharge. Please follow-up with [facility] in 1 week. A referral has been provided to you. Return to the ER for fevers, increased discharge despite treatment, vomiting, abdominal pain, or if you have any changes in your symptoms. - Post Discharge Activity Work/Back to School Note: Back to Work
[2019-06-17 13:51] LABS: EPI CELLS 9.3 /HPF (0-5/HPF); HYALINE CASTS 20 /lpf (0-8); PH,URINE 6.5 (5.0-8.0); URINE APPEARANCE CLOUDY; URINE BACTERIA 61.8 /hpf (NEGATIVE); URINE BILIRUBIN 1+ (NEGATIVE); URINE COLOR DK YELLOW; URINE GLUCOSE (UA) NEGATIVE (NEGATIVE); URINE KETONE NEGATIVE (NEGATIVE); URINE LEUK ESTERASE 3+ (NEGATIVE); URINE NITRITE NEGATIVE (NEGATIVE); URINE PROTEIN TRACE (NEGATIVE); URINE UROBILINOGEN 4.0 E.U/dl mg/dL (0.2-1.0); URINE WBC 318 /hpf (0-5)
[2019-06-17 14:55] LABS: URINE RBC 6.9 /hpf (0-4)
== END 2019-06-17 13:32 | disposition home or self-care (01) ==
LOC: JERFT 12:36
DX: N89.8 Other specified noninflammatory disorders of vagina (principal); Z91.013 Allergy to seafood; Z88.8 Allergy status to other drugs, medicaments and biological substances; F10.10 Alcohol abuse, uncomplicated
CPT/HCPCS: 81003; 84703; 87070; 87077; 87086; 87205; 99284-25

== ENCOUNTER 2020-12-29 13:38 | Emergency (ER) | payer BC, OTHER ==
[2020-12-29 13:52] VITALS: BP 131/84; PULSE 92; TEMP 98.5; BMI 24.0
== END 2020-12-29 14:47 | disposition home or self-care (01) ==
LOC: JERFT 13:38
DX: H10.31 Unspecified acute conjunctivitis, right eye (principal)
CPT/HCPCS: 99283-25

== ENCOUNTER 2021-05-01 10:39 | Emergency (ER) | payer OTHER ==
[2021-05-01 10:54] VITALS: BP 123/78; PULSE 75; TEMP 97.9; BMI 24.5
== END 2021-05-01 12:03 | disposition home or self-care (01) ==
LOC: JERFT 10:39
DX: Z76.0 Encounter for issue of repeat prescription (principal)
CPT/HCPCS: 36415; 84439; 84443; 84481; 99282-25

== ENCOUNTER 2021-06-11 19:00 | Emergency (ER) | payer OTHER ==
[2021-06-11 19:36] VITALS: BP 129/82; PULSE 86; TEMP 98.9; BMI 24.5
[2021-06-11] MEDS ORDERED: ACETAMINOPHEN 1000 MG/100 ML BAG IVPB ONE (20:50)
[2021-06-11] MEDS ORDERED: ONDANSETRON 4 MG/2 ML VIAL IVPUSH ONE (20:50)
[2021-06-11] MEDS ORDERED: SODIUM CHLORIDE 1,000 ML IV STA (20:50)
[2021-06-11 21:07] LABS: PH,URINE 7.5 (5.0-8.0); URINE APPEARANCE CLEAR; URINE BILIRUBIN NEGATIVE (NEGATIVE); URINE COLOR YELLOW; URINE GLUCOSE (UA) NEGATIVE (NEGATIVE); URINE KETONE NEGATIVE (NEGATIVE); URINE LEUK ESTERASE TRACE (NEGATIVE); URINE NITRITE NEGATIVE (NEGATIVE); URINE PROTEIN NEGATIVE (NEGATIVE)
[2021-06-11 21:17] LABS: EPI CELLS 3.4 /uL (0-25.1); URINE BACTERIA 7.1 /uL (0-1359); URINE RBC 11.1 /uL (0-23.9); URINE WBC 1.9 /uL (0-25.8)
[2021-06-11] MEDS ORDERED: ACETAMINOPHEN INJECTION 100 ML IVPB ONE (21:20)
[2021-06-11] MEDS ORDERED: ONDANSETRON 4 MG/2 ML VIAL ONE (21:20)
[2021-06-11 21:22] LABS: HCG,QUALITATIVE URINE Negative
[2021-06-11 21:46] LABS: BASO % 0.6 % (0-2.0); EOS % 1.2 % (0-4.5); HEMATOCRIT 26.1 % (32.4-45.2); HEMOGLOBIN 8.6 GM/dL (10.7-15.3); LYMPH % 32.1 % (8-40); MCH 29.8 pg (25.7-33.7); MCHC 33.2 g/dl (32.0-36.0); MEAN CELL VOLUME 89.7 fl (80-96); MEAN PLT VOLUME 8.6 fl (7.5-11.1); MONO % 6.4 % (3.8-10.2); NEUT % 59.7 % (42.8-82.8); PLATELET COUNT 56 10^3/uL (134-434); WHITE BLOOD COUNT 3.8 K/mm3 (4.0-10.0)
[2021-06-11 21:53] LABS: INR 1.37 (0.83-1.09); PROTHROMBIN TIME (PATIENT) 15.8 SEC (9.7-13.0)
[2021-06-11 22:06] LABS: CALCIUM 8.7 mg/dL (8.5-10.1)
[2021-06-11 22:07] LABS: ALBUMIN 3.8 g/dl (3.4-5.0); BLOOD UREA NITROGEN 5.3 mg/dL (7-18)
[2021-06-11 22:10] LABS: CREATININE 0.8 mg/dL (0.55-1.3)
[2021-06-11 22:12] LABS: BILIRUBIN,TOTAL 2.2 mg/dL (0.2-1); TOT PROT 7.7 g/dl (6.4-8.2)
[2021-06-11] MEDS ORDERED: POTASSIUM CHLORIDE TABS 20 MEQ TABLET.ER (FP) PO ONE (22:19)
[2021-06-12] MEDS ORDERED: POTASSIUM CHLORIDE TABS 20 MEQ TABLET.ER (FP) PO ONE (00:06)
== END 2021-06-12 01:34 | disposition home or self-care (01) ==
LOC: JER 19:00
PROC: 3E0333Z Introduction of Anti-inflammatory into Peripheral Vein, Percutaneous Approach (ICD-10-PCS; principal; 2021-06-11)
PROC: 3E033GC Introduction of Other Therapeutic Substance into Peripheral Vein, Percutaneous Approach (ICD-10-PCS; 2021-06-11)
PROC: 3E0337Z Introduction of Electrolytic and Water Balance Substance into Peripheral Vein, Percutaneous Approach (ICD-10-PCS; 2021-06-11)
DX: R10.9 Unspecified abdominal pain (principal)
CPT/HCPCS: 36415; 74176-TC; 80053; 81003; 84703; 85025; 85610; 87086; 96361; 96374; 96375; 99284-25

== ENCOUNTER 2021-07-12 05:40 | Emergency (ER) | payer OTHER ==
[2021-07-12 06:29] VITALS: BP 133/83; PULSE 63; TEMP 97.8; BMI 24.5
[2021-07-12] MEDS ORDERED: SODIUM CHLORIDE 0.9% 500 ML INFUS.BAG IV ONE (06:42)
[2021-07-12] MEDS ORDERED: ACETAMINOPHEN 1000 MG/100 ML BAG IVPB ONE (06:42)
[2021-07-12] MEDS ORDERED: ACETAMINOPHEN INJECTION 100 ML IVPB ONE (06:48)
[2021-07-12 07:25] LABS: HEMATOCRIT 25.9 % (32.4-45.2); HEMOGLOBIN 8.4 GM/dL (10.7-15.3); LYMPH % 35.2 % (8-40); MCH 30.5 pg (25.7-33.7); MCHC 32.5 g/dl (32.0-36.0); MEAN CELL VOLUME 93.6 fl (80-96); MEAN PLT VOLUME 9.6 fl (7.5-11.1); NEUT % 53.7 % (42.8-82.8); PLATELET COUNT 56 10^3/uL (134-434); RBC 2.77 M/mm3 (3.60-5.2); RDW 24.4 % (11.6-15.6); WHITE BLOOD COUNT 3.4 K/mm3 (4.0-10.0)
[2021-07-12 07:26] LABS: BASO % 1.1 % (0-2.0); EOS % 2.6 % (0-4.5); MONO % 7.4 % (3.8-10.2)
[2021-07-12 07:43] LABS: ALBUMIN 3.6 g/dl (3.4-5.0); CALCIUM 8.6 mg/dL (8.5-10.1)
[2021-07-12 07:46] LABS: CREATININE 0.7 mg/dL (0.55-1.3)
[2021-07-12 07:48] LABS: BILIRUBIN,TOTAL 1.7 mg/dL (0.2-1); TOT PROT 7.4 g/dl (6.4-8.2)
[2021-07-12 08:05] LABS: EPI CELLS 36 /uL (0-25.1); HYALINE CASTS 70 /uL (0-3.1); URINE APPEARANCE CLOUDY; URINE BILIRUBIN 1+ (NEGATIVE); URINE COLOR DK YELLOW; URINE GLUCOSE (UA) NEGATIVE (NEGATIVE); URINE KETONE TRACE (NEGATIVE); URINE LEUK ESTERASE 2+ (NEGATIVE); URINE NITRITE POSITIVE (NEGATIVE); URINE PROTEIN 1+ (NEGATIVE); URINE RBC 153 /uL (0-23.9); URINE WBC 803 /uL (0-25.8)
[2021-07-12] MEDS ORDERED: MAG HYDROX/AL HYDROX/SIMETH -MYLANTA- ORAL SUSPENSION PO ONE (08:11)
[2021-07-12] MEDS ORDERED: FAMOTIDINE 20 MG/50 ML IVPB 20 MG/50 ML MG IVPB ONE ×2 (08:11→08:16)
[2021-07-12] MEDS ORDERED: CEFTRIAXONE 1 GM in DEXTROSE 5%-WATER - 50 ML IVPB ONE (08:14)
[2021-07-12] MEDS ORDERED: MAG HYDROX/AL HYDROX/SIMETH 30 ML UNIT-DOSE CUP ONE (08:16)
[2021-07-12] MEDS ORDERED: CEFTRIAXONE 1 GM/50 ML BAG ONE (08:25)
[2021-07-12 08:32] LABS: ANISOCYTOSIS 2+; MACROCYTOSIS 1+
== END 2021-07-12 09:28 | disposition home or self-care (01) ==
LOC: JER 05:40
PROC: 3E033GC Introduction of Other Therapeutic Substance into Peripheral Vein, Percutaneous Approach (ICD-10-PCS; principal; 2021-07-12)
DX: N39.0 Urinary tract infection, site not specified (principal); R10.84 Generalized abdominal pain
CPT/HCPCS: 36415; 80053; 81003; 83690; 84484; 84703; 85025; 87086; 87186; 93005; 93010; 99284-25

== ENCOUNTER 2025-01-07 06:10 | Day surgery (SDC) | payer OTHER ==
[2025-01-07] MEDS ORDERED: ACETAMINOPHEN 1000 MG/100 ML BAG IVPB ONE (06:13)
[2025-01-07] MEDS ORDERED: GABAPENTIN 300 MG CAPSULE ONE (06:31)
[2025-01-07] MEDS ORDERED: PHENAZOPYRIDINE HCL 100 MG TABLET (FP) ONE (06:31)
[2025-01-07] MEDS: PHENAZOPYRIDINE HCL 100 MG TABLET (FP) PO ONE (06:46)
[2025-01-07] MEDS: GABAPENTIN 300 MG CAPSULE PO ONE (06:46)
[2025-01-07] MEDS ORDERED: MIDAZOLAM HCL 2 MG/2 ML SINGLE DOSE VIAL ONE ×2 (08:29→08:36)
[2025-01-07] MEDS ORDERED: LIDOCAINE HCL/PF 2% SDV 5ML VIAL ONE (08:33)
[2025-01-07] MEDS ORDERED: ROCURONIUM BROMIDE 50 MG/5 ML SYRINGE ONE ×2 (08:34→09:18)
[2025-01-07] MEDS ORDERED: PROPOFOL 40 ML ONE (08:34)
[2025-01-07] MEDS ORDERED: DEXAMETHASONE SOD PHOSPHATE 4 MG/1 ML VIAL ONE ×2 (09:07)
[2025-01-07] MEDS ORDERED: METOCLOPRAMIDE HCL INJECTION 10 MG/2 ML VIAL ONE (09:08)
[2025-01-07] MEDS ORDERED: PROPOFOL 20 ML ONE (09:52)
[2025-01-07] MEDS ORDERED: DEXMEDETOMIDINE HCL 200 MCG/2 ML IVPB ONE (09:54)
[2025-01-07] MEDS ORDERED: ONDANSETRON 4 MG/2 ML VIAL IVPUSH PRN (09:59)
[2025-01-07] MEDS ORDERED: KETOROLAC TROMETHAMINE 30 MG/1 ML VIAL ONE (10:33)
[2025-01-07] MEDS ORDERED: SUGAMMADEX SODIUM 200 MG/2 ML VIAL ONE (10:34)
[2025-01-07] MEDS ORDERED: ONDANSETRON 4 MG/2 ML VIAL ONE (10:34)
[2025-01-07] MEDS ORDERED: KETAMINE HCL 200 MG/20 ML VIAL ONE (10:36)
[2025-01-07] MEDS ORDERED: DOCUSATE SODIUM 100 MG CAPSULE (FP) PO PRN (11:18)
[2025-01-07] MEDS ORDERED: BISACODYL 5 MG TABLET.DR (FP) PO PRN (11:18)
[2025-01-07] MEDS ORDERED: SIMETHICONE 80 MG TAB.CHEW (FP) PO PRN (11:18)
[2025-01-07] MEDS ORDERED: PATIENT'S OWN MEDICATION (NON-FORMULARY) (Doxycycline Hyclate [Doxycycline Hyclate] 100 MG PO SCH (11:30)
[2025-01-07] MEDS ORDERED: MEPERIDINE HCL 25 MG/ML VIAL ONE (11:40)
[2025-01-07] MEDS: MEPERIDINE HCL 25 MG/ML VIAL IVPUSH ONE (11:45)
[2025-01-07] MEDS ORDERED: PATIENT'S OWN MEDICATION (NON-FORMULARY) (Hydroxyzine Hcl [Hydroxyzine Hcl] 10 MG Tablet) PO SCH (14:00)
[2025-01-07 14:29] VITALS: RESP 18
[2025-01-07] MEDS: LACTATED RINGERS SOLUTION 1,000 ML IV SCH (14:48)
[2025-01-07] MEDS ORDERED: ALBUTEROL SO4 0.083% IH SOL 2.5 MG/3 ML VIAL.NEB. NEB PRN (15:05)
[2025-01-07] MEDS: CEFAZOLIN 1 GM in DEXTROSE 5%-WATER - 50 ML IVPB SCH (17:01)
[2025-01-07] MEDS: IBUPROFEN 800 MG/8 ML IJ IVPB SCH (17:30)
[2025-01-07] MEDS: ONDANSETRON 4 MG/2 ML VIAL IVPUSH PRN (17:41)
[2025-01-07 18:18] LABS: MCHC 33.3 g/dl (32.2-35.5); MEAN CELL VOLUME 91.9 fl (79.4-94.8); MEAN PLT VOLUME 12.7 fl (9.4-12.3); RDW 14.3 % (12.2-17.1)
[2025-01-07 18:50] LABS: GLUCOSE,RANDOM 189.0 mg/dL (74-106)
[2025-01-07 18:52] LABS: CO2 22.0 mmol/L (21-32)
[2025-01-07 18:56] LABS: CREATININE 0.67 mg/dL (0.55-1.3)
[2025-01-07] MEDS: ACETAMINOPHEN 1000 MG/100 ML BAG IVPB SCH (19:36)
[2025-01-08] MEDS: LEVOTHYROXINE NA 75 MCG TABLET (FP) PO SCH (06:50)
[2025-01-08 07:38] LABS: RDW 14.6 % (12.2-17.1)
[2025-01-08 07:39] LABS: IMMATURE PLATELET FRACTION # 8.90 x10^3/uL; MCHC 32.8 g/dl (32.2-35.5); MEAN CELL VOLUME 92.2 fl (79.4-94.8); MEAN PLT VOLUME 12.6 fl (9.4-12.3)
[2025-01-08 07:57] LABS: GLUCOSE,RANDOM 80.0 mg/dL (74-106)
[2025-01-08 07:58] LABS: CO2 25.0 mmol/L (21-32)
[2025-01-08 08:03] LABS: CREATININE 0.74 mg/dL (0.55-1.3)
[2025-01-08] MEDS: OXcarbazepine 300 MG TABLET (UD) PO SCH (09:36)
[2025-01-08] MEDS: ENOXAPARIN NA (PORCINE) 40 MG/0.4 ML DISP.SYRIN SQ SCH (09:36)
[2025-01-08] MEDS: LORATADINE 10 MG TABLET PO SCH (09:36)
[2025-01-08 09:47] VITALS: BP 126/73; PULSE 76; TEMP 98.2
[2025-01-08] MEDS ORDERED: IBUPROFEN 600 MG TABLET (FP) PO SCH (10:00)
[2025-01-08] MEDS ORDERED: ALBUTEROL SO4 HFA INHALER IH PRN (10:00)
[2025-01-08] MEDS ORDERED: FLUTICASONE/UMECLIDIN/VILANTER(100-62.5-25 TRELEGY ELLIPTA) INAHLER IH SCH (10:00)
[2025-01-08] MEDS ORDERED: FEZOLINETANT 45 MG PO SCH (10:00)
[2025-01-08] MEDS ORDERED: ACETAMINOPHEN 500 MG TABLET (FP) PO SCH (13:00)
== END 2025-01-08 11:27 | disposition home or self-care (01) ==
LOC: JASUSAT 06:10 → J8W 13:57 → JASUSAT 01-08 11:27
PROVIDERS: ATTEND Obstetrics & Gynecology
PROC: 8E0W4CZ Robotic Assisted Procedure of Trunk Region, Percutaneous Endoscopic Approach (ICD-10-PCS; 2025-01-07)
PROC: 0UT9FZZ Resection of Uterus, Via Natural or Artificial Opening With Percutaneous Endoscopic Assistance (ICD-10-PCS; principal; 2025-01-07 08:30)
PROC: 0UB77ZZ Excision of Bilateral Fallopian Tubes, Via Natural or Artificial Opening (ICD-10-PCS; 2025-01-07 08:30)
DX: D25.1 Intramural leiomyoma of uterus (principal)
CPT/HCPCS: 58552; S2900; 36415; 80048; 81025; 85027; 86850; 86900; 86901; 88302-TC; 88305-TC; 88307-TC; 94010; 94760